=== PATIENT | male | born 1960 | race Caucasian/White ===

== ENCOUNTER 2017-06-21 09:07 | Emergency (ER) | payer BC ==
[2017-06-21] MEDS ORDERED: Reglan 10 MG/2 ML IV ONE (09:54)
[2017-06-21] MEDS ORDERED: Lactated Ringers 1,000 ML IV ONE ×2 (09:56→10:14)
[2017-06-21 10:07] LABS: Hematocrit 45.3 % (42-50); Mean Corpuscular Hgb Concent. 35.3 g/dl (32-36); Mean Platelet Volume 9.6 fl (6-9.5); Platelet Count 281 K/mm3 (150-450); Red Blood Count 5.33 M/mm3 (4.1-5.6); Red Cell Distribution Width 12.7 % (11.5-14.0)
[2017-06-21] MEDS ORDERED: Reglan 10 MG/2 ML ONE (10:14)
[2017-06-21 10:41] LABS: BAND 9 % (0.0-2.0); Lymphocytes 14 % (24-44); Monocyte 4 % (0.0-12.0); Neutrophils 73 % (36.-66.); Platelet Estimate NORMAL (NORMAL); Total Cells Counted 100
[2017-06-21 11:15] LABS: ALBUMIN 5.7 g/dl (3.5-5.0); ANION GAP 34.6 MEQ/L; BILIRUBIN,TOTAL 1.1 mg/d? (0.2-1.3); Calcium 11.1 mg/dl (8.4-10.2); Creatinine 1 2.07 mg/dl (0.66-1.25); Potassium 4.1 mmol/L (3.5-5.1); Total Protein 10.7 mg/dl (6.3-8.2)
--- NOTE | 2017-06-21 11:17 | XRAY ---
Indication: Abdominal pain, nausea, and vomiting. Comparison: Chest exam March 21, 2006. 2 views of the abdomen demonstrates midabdomen mild air distended small bowel loop with paucity of colonic bowel gas. Obstruction is of primary concern. No free air. Solid organs unremarkable. Scattered vascular calcifications. Osseous structures intact with lower lumbar degenerative changes and partially visualized old proximal right femur fracture. Single PA chest clear with incidental calcified granulomas. Heart is not enlarged. Bony thorax intact with mild degenerative changes. New surgical clips at the base the neck. Impression: 1. Midabdomen air distended small bowel loop with paucity of colonic bowel gas. Rule out obstruction. 2. Nonacute 1V chest with chronic features.
--- NOTE | 2017-06-21 11:32 | ERPHSYRPT ---
- History of Present Illness Time Seen by Provider: 06/21/17 09:13 Historian: patient, other Exam Limitations: no limitations Patient Subjective Stated Complaint: pt reports vomiting for several days-was tx with fluids by pcp-reports he is still vomiting-denies diarrhea Triage Nursing Assessment: pt pink warm and dry-pt has trach in place and is nonverbal-communicates thru phone gestures and friend-abd soft and nontender to palp Physician History: patient with abd pain generalized with N&V x 3 days; unable to keep anything down; no recent travel or exposures; hx of bowel resection in past; no ffever; voids ok; no recent BM Timing/Duration: day(s) (3) Activities at Onset: none Quality: cramping Abdominal Pain Onset Location: generalized abdomen Pain Radiation: no radiation Severity of Pain-Max: severe Severity of Pain-Current: moderate Modifying Factors: Improves With: vomiting (releif after for short time) Associated Symptoms: loss of appetite, nausea, vomiting Previous symptoms: no recent treatment Allergies/Adverse Reactions: No Known Drug Allergies Allergy (Verified 06/21/17 09:41) Home Medications: Rosuvastatin Calcium [Crestor] 10 mg DAILY 04/08/13 [History] Carvedilol 12.5 mg [Coreg 12.5 mg] 12.5 mg PO DAILY 06/19/17 [History] Pantoprazole Sodium [Protonix] 40 mg PO DAILY 06/19/17 [History] Ranitidine HCl 150 mg PO DAILY 06/19/17 [History] Hx Tetanus, Diphtheria Vaccination/Date Given: Yes Hx Influenza Vaccination/Date Given: Yes Hx Pneumococcal Vaccination/Date Given: Yes Immunizations Up to Date: Yes - Review of Systems Constitutional: No Symptoms Eyes: No Symptoms Ears, Nose, & Throat: No Symptoms Respiratory: No Cough, No Dyspnea, No Wheezing Cardiac: No Chest Pain, No Palpitations, No Syncope Abdominal/Gastrointestinal: Abdominal Pain, Nausea, Vomiting, Constipation, No Diarrhea, No Hematemesis, No Melena Genitourinary Symptoms: No Symptoms Musculoskeletal: No Symptoms Skin: No Symptoms Neurological: No Symptoms Psychological: No Symptoms Endocrine: No Symptoms Hematologic/Lymphatic: No Symptoms Immunological/Allergic: No Symptoms - Past Medical History Pertinent Past Medical History: Yes Neurological History: No Pertinent History ENT History: No Pertinent History Cardiac History: High Cholesterol, Hypertension Respiratory History: Other Endocrine Medical History: No Pertinent History Musculoskeletal History: No Pertinent History GI Medical History: GERD History: No Pertinent History Psycho-Social History: No Pertinent History Male Reproductive Disorders: No Pertinent History Other Medical History: throat CA. pt communicated with writing r/t trach - Past Surgical History Past Surgical History: Yes Neuro Surgical History: No Pertinent History Cardiac: No Pertinent History Respiratory: Tracheostomy Gastrointestinal: Colon Resection Genitourinary: No Pertinent History Musculoskeletal: No Pertinent History Male Surgical History: No Pertinent History - Social History Smoking Status: Former smoker Exposure to second hand smoke: No Alcohol Use: None Drug Use: none Patient Lives Alone: No Significant Family History: no pertinent family hx - Female History Hx Now: No - Nursing Vital Signs Nursing Vital Signs: Initial Vital Signs Temperature 97.6 F 06/21/17 09:37 Pulse Rate 102 H 06/21/17 09:37 Respiratory Rate 18 06/21/17 09:37 Blood Pressure 168/102 06/21/17 09:37 O2 Sat by Pulse Oximetry 98 06/21/17 09:37 Pain Scale Pain Intensity 3 - Physical Exam General Appearance: moderate distress, alert, thin, other (trach in place) Eye Exam: PERRL/EOMI, eyes nml inspection, No photophobia Ears, Nose, Throat Exam: normal ENT inspection, TMs normal, pharynx normal, dry mucous membranes Neck Exam: normal inspection, non-tender, supple, full range of motion, No meningismus, No JVD Respiratory Exam: normal breath sounds, lungs clear, airway intact, other ( trach in place), No chest tenderness, No respiratory distress Cardiovascular Exam: regular rate/rhythm, normal heart sounds, normal peripheral pulses, tachycardia, capillary refill <2 sec, No murmur Gastrointestinal/Abdomen Exam: soft, No normal bowel sounds (deminished ), No tenderness, No distention, No guarding, No pulsatile mass, No rebound, No organomegaly Rectal Exam: deferred Back Exam: normal inspection, normal range of motion, No CVA tenderness Extremity Exam: normal inspection, normal range of motion, No andressa's sign, No pedal edema Neurologic Exam: alert, oriented x 3, cooperative, commissary superintendent II-XII nml as tested, normal mood/affect, nml cerebellar function, nml station & gait Skin Exam: normal color, warm, dry, No rash Lymphatic Exam: No adenopathy SpO2 Interpretation: normal SpO2: 97 Oxygen Delivery: Room Air - Course Nursing assessment & vital signs reviewed: Yes - Radiology Exams Abdomen X-ray Interpretation: Reviewed by me, Teleradiologist Report (possible bowel obstruction) - CT Exams Abdomen CT Interpretation: Tele-radiologist Report, Other (ileus vs enteritis) Ordered Tests: Active Orders 24 hr Category Date Time Status IV Insertion STAT Care 06/21/17 09:54 Active Re-Check Vital Signs STAT Care 06/21/17 09:54 Active ABDOMEN AND PELVIS W/0 CONTRAS [CT] Stat Exams 06/21/17 11:57 Completed OBSTR/ACUTE ABDOMEN SERIES Stat Exams 06/21/17 09:55 Completed AMYLASE Stat Lab 06/21/17 10:03 Completed CBC W DIFF Stat Lab 06/21/17 10:03 Completed CMP Stat Lab 06/21/17 10:03 Completed LIPASE Stat Lab 06/21/17 10:03 Completed Manual Differential NC Stat Lab 06/21/17 10:03 Completed Medication Summary Discontinued Medications Generic Name Dose Route Start Last Admin Trade Name Freq PRN Reason Stop Dose Admin Lactated Ringer's 1,000 mls @ 999 mls/hr 06/21/17 09:56 06/21/17 10:15 Lactated Ringers IV 06/21/17 10:56 999 mls/hr .Q1H1M ONE Administration Lactated Ringer's Confirm 06/21/17 10:14 Lactated Ringers Administered 06/21/17 10:15 Dose 1,000 mls @ ud IV .STK-MED ONE Metoclopramide HCl 10 mg 06/21/17 09:54 06/21/17 10:15 Reglan 10 Mg/2 Ml IV 06/21/17 09:55 10 mg STAT ONE Administration Metoclopramide HCl Confirm 06/21/17 10:14 Reglan 10 Mg/2 Ml Administered 06/21/17 10:15 Dose 10 mg .ROUTE .STK-MED ONE Lab/Rad Data: Laboratory Result Diagrams 06/21/17 10:03 06/21/17 10:03 Laboratory Results 06/21/17 06/21/17 Range/Units 10:03 10:03 WBC 8.0 (4.0-10.5) K/mm3 RBC 5.33 (4.1-5.6) M/mm3 Hgb 16.0 (12.5-18.0) gm/dl Hct 45.3 (42-50) % MCV 85.0 (78-100) fl MCH 30.0 (26-32) pg MCHC 35.3 (32-36) g/dl RDW 12.7 (11.5-14.0) % Plt Count 281 (150-450) K/mm3 MPV 9.6 H (6-9.5) fl Segmented Neutrophils 73 H (36.-66.) % Band Neutrophils 9 H (0.0-2.0) % Lymphocytes (Manual) 14 L (24-44) % Monocytes (Manual) 4 (0.0-12.0) % Differential Comment NORMAL Platelet Estimate NORMAL (NORMAL) Sodium 138 (137-145) mmol/L Potassium 4.1 (3.5-5.1) mmol/L Chloride 88 L (98-107) mEq/L Carbon Dioxide 19 L (22-30) mmol/L Anion Gap 34.6 MEQ/L BUN 45 H (9-20) mg/dl Creatinine 2.07 H (0.66-1.25) mg/dl Estimated GFR 35 ML/MIN Glucose 151 H (74-106) mg/dL Calcium 11.1 H (8.4-10.2) mg/dl Total Bilirubin 1.10 (0.2-1.3) mg/d? AST 33 (17-59) U/L ALT 23 (0-50) U/L Alkaline Phosphatase 84 (38-126) U/L Serum Total Protein 10.7 H (6.3-8.2) mg/dl Albumin 5.7 H (3.5-5.0) g/dl Amylase 91 (30-110) U/L Lipase 97 (23-300) U/L reviewed - Progress Progress: improved (after meds), re-examined (after IV fluids and meds) Progress Note: 06/21/17 11:30 meds and iv given; xr and lab pending 06/21/17 11:31 xr suspect bowel obstruction; will get CT to RO; pain improved; N&V imporved; vomited x 1 post meds 06/21/17 12:[address] ; no pain; nontender abdomen; no N&V; VS good; CT ileus; will conitue IV and observe and monitor and recheck 06/21/17 13:01 rechecked and resting comfortably; VS ok; IV fluids going well Counseled pt/family regarding: lab results, diagnosis, need for follow-up, rad results - Departure Time of Disposition: 13:04 Departure Disposition: Home Clinical Impression: Nonspecific abdominal pain, Enteritis, Vomiting Condition: Stable Critical Care Time: No Referrals: JANA SMITH MD [Primary Care Provider] - Instructions: Vomiting -- Adult Additional Instructions: clear fluids 24 hours; continue meds Follow-up with family doctor as directed. Call for appointment. Return if any problems. If you smoke please stop. Call or follow up with your family doctor for assistance if you need it to stop. Please wear your seatbelt when driving. Have a nice day. Thank you for allowing us to participate in your care today. :o) Dr Phil Kapoor Prescriptions: Ondansetron ODT 4 MG [Zofran Odt 4 mg] 4 mg PO Q6H PRN PRN #14 tab.rapdis PRN Reason: Vomiting Sucralfate 1000 mg/10 ml [Carafate SUSPENSION 1000 MG/10 ML] 100 mg PO ACHS #12 oz
--- NOTE | 2017-06-21 12:15 | XRAY ---
Indication: Nausea and vomiting. Possible obstruction on same day acute abdomen series. Multiple contiguous axial images obtained through the abdomen and pelvis without contrast as ordered. Comparison: September 02, 2011. Lung bases demonstrates minimal bibasilar dependent atelectasis. No infiltrate or effusion. Heart is not enlarged again small hiatal hernia. Noncontrasted stomach unremarkable. Small bowel loops are now mildly fluid distended up to 5 cm with synchronous fluid leveling and minimal bowel wall thickening either ileus versus enteritis. There has been interval colectomy with intact sigmoid anastomosis. There is mild fluid and fecal debris in the remaining sigmoid colon and rectum favoring diarrhea. No free fluid/air. Interval enlarging 2 left renal cysts, largest 3.5 cm. Remaining liver, gallbladder, pancreas, spleen, adrenal glands, kidneys, ureters, and bladder appear unremarkable for noncontrast exam. There remains mild/moderate aortoiliac calcifications without AAA. Osseous structures intact again demonstrating bilateral L5 spondylolysis with minimal grade 1 spondylolisthesis. Also stable old proximal right femur fracture with partially visualized orthopedic hardware. Impression: 1. Fluid distended small bowel loops with synchronous fluid leveling and bowel wall thickening, ileus versus enteritis. 2. Interval colectomy which would explain the absent colonic bowel gas on same day radiograph. Intact anastomosis. 3. Interval enlarging left renal cysts. 4. Stable small hiatal hernia. 5. Stable L5 spondylolysis with grade [address] DI 16.57
[2017-06-21 13:24] VITALS: BP 148/88; PULSE 78; O2SAT 98
== END 2017-06-21 13:24 | disposition home or self-care (01) ==
LOC: ED 09:07
DX: R10.9 Unspecified abdominal pain (principal); K52.9 Noninfective gastroenteritis and colitis, unspecified; R11.2 Nausea with vomiting, unspecified; Z90.49 Acquired absence of other specified parts of digestive tract; Z93.0 Tracheostomy status; Z79.899 Other long term (current) drug therapy
CPT/HCPCS: 36000; 36415; 74022; 74176; 80053; 82150; 83690; 85025; 96360; 96374; 99284; 99285

== ENCOUNTER 2017-06-22 16:04 | Inpatient (IN) | payer BC ==
[2017-06-22 17:16] LABS: BASOPHIL % 0.2 % (0.0-0.4); Basophil (Absolute #) 0.01 (0-0.4); Eosinophil % 1.4 % (0.00-5.0); Eosinophil (Absolute #) 0.09 (0-0.5); Granulocyte Absolute (ANC) 4.47 (1.4-6.9); Granulocytes % 67.8 % (36.0-66.0); Hematocrit 45.2 % (42-50); Hemoglobin 16.3 gm/dl (12.5-18.0); Lymphocyte (Absolute #) 0.82 (1.0-4.6); Lymphocytes % 12.5 % (24.0-44.0); Mean Cell Volume 83.1 fl (78-100); Mean Corpuscular Hgb Concent. 36.1 g/dl (32-36); Mean Platelet Volume 9.5 fl (6-9.5); Monocyte (Absolute #) 1.19 (0.0-1.3); Monocytes % 18.1 % (0.0-12.0); Platelet Count 329 K/mm3 (150-450); Red Blood Count 5.44 M/mm3 (4.1-5.6); Red Cell Distribution Width 12.8 % (11.5-14.0); White Blood Count 6.6 K/mm3 (4.0-10.5)
[2017-06-22 17:16] LABS: Lactic Acid 1.9 (0.4-2.0)
[2017-06-22 17:51] LABS: ALBUMIN 5.5 g/dl (3.5-5.0); ANION GAP 35.8 MEQ/L (5-15); BILIRUBIN,TOTAL 0.9 mg/d? (0.2-1.3); Calcium 10.5 mg/dL (8.4-10.2); Creatinine 1 3.78 mg/dl (0.66-1.25); Potassium 3.7 mmol/L (3.5-5.1); Total Protein 10.5 mg/dl (6.3-8.2)
[2017-06-22] MEDS ORDERED: Zofran 4 MG/2 ML VIAL IV ONE (17:55)
[2017-06-22] MEDS ORDERED: Sodium Chloride 0.9% 1000 ML 1,000 ML IV SCH ×2 (18:00→19:28)
[2017-06-22] MEDS ORDERED: Sodium Chloride 0.9% 1000 ML 1,000 ML ONE (18:26)
[2017-06-22] MEDS ORDERED: Zofran 4 MG/2 ML VIAL ONE (18:28)
--- NOTE | 2017-06-22 18:57 | ERPHSYRPT ---
- History of Present Illness Time Seen by Provider: 06/22/17 16:47 Historian: patient Patient Subjective Stated Complaint: here for abd pain and n/v was here for samething yesterday. pt states he is not better, pt communicate with board do to not being able to speak. pt has a trach Triage Nursing Assessment: pt alert, resp easy,skin w/d/p. and soft Physician History: CC: vomiting Hx: 56 y/o patient of Dr Smith and Isaac. He has had vomiting. A little diarrhea yesterday. Was evaluated in ER and had CT without bowel obstruction. He went home. Continued to vomit. No fever or chills. Off and on abd cramping. No chest pain. Unable to eat or drink. Timing/Duration: yesterday Severity of Pain-Max: moderate Severity of Pain-Current: moderate Allergies/Adverse Reactions: No Known Drug Allergies Allergy (Verified 06/22/17 16:36) Home Medications: Rosuvastatin Calcium [Crestor] 10 mg DAILY 04/08/13 [History] Carvedilol 12.5 mg [Coreg 12.5 mg] 12.5 mg PO DAILY 06/19/17 [History] Pantoprazole Sodium [Protonix] 40 mg PO DAILY 06/19/17 [History] Ranitidine HCl 150 mg PO DAILY 06/19/17 [History] Hx Tetanus, Diphtheria Vaccination/Date Given: Yes Hx Influenza Vaccination/Date Given: Yes Hx Pneumococcal Vaccination/Date Given: Yes - Review of Systems Constitutional: Fatigue, Malaise, Weakness, No Fever, No Chills Eyes: No Symptoms Ears, Nose, & Throat: No Symptoms Respiratory: No Cough, No Dyspnea Cardiac: No Chest Pain Abdominal/Gastrointestinal: Nausea, Vomiting, No Abdominal Pain, No Diarrhea Genitourinary Symptoms: No Dysuria Neurological: No Dizziness, No Focal Weakness, No Parasthesia All Other Systems: Reviewed and Negative - Past Medical History Pertinent Past Medical History: Yes Neurological History: No Pertinent History ENT History: No Pertinent History Cardiac History: High Cholesterol, Hypertension Respiratory History: Other Endocrine Medical History: No Pertinent History Musculoskeletal History: No Pertinent History GI Medical History: GERD History: No Pertinent History Psycho-Social History: No Pertinent History Male Reproductive Disorders: No Pertinent History Other Medical History: throat CA. pt communicated with writing r/t trach - Past Surgical History Past Surgical History: Yes Neuro Surgical History: No Pertinent History Cardiac: No Pertinent History Respiratory: Tracheostomy Gastrointestinal: Colon Resection Genitourinary: No Pertinent History Musculoskeletal: No Pertinent History Male Surgical History: No Pertinent History - Social History Smoking Status: Former smoker Exposure to second hand smoke: No Alcohol Use: None Drug Use: none Patient Lives Alone: No Significant Family History: no pertinent family hx - Nursing Vital Signs Nursing Vital Signs: Initial Vital Signs Temperature 97.6 F 06/22/17 16:26 Pulse Rate 97 H 06/22/17 16:26 Respiratory Rate 16 06/22/17 16:26 Blood Pressure 142/91 06/22/17 16:26 O2 Sat by Pulse Oximetry 98 06/22/17 16:26 Pain Scale Pain Intensity 0 - Physical Exam General Appearance: alert Eye Exam: PERRL/EOMI Ears, Nose, Throat Exam: dry mucous membranes Neck Exam: normal inspection, non-tender, supple, other (trach) Respiratory Exam: normal breath sounds Cardiovascular Exam: regular rate/rhythm Gastrointestinal/Abdomen Exam: soft, No tenderness, No distention, No mass, No guarding Male Genitalia Exam: normal genitalia Extremity Exam: normal inspection, No pedal edema Neurologic Exam: alert, cooperative Skin Exam: warm, dry, No rash SpO2 Interpretation: normal SpO2: 98 Oxygen Delivery: Room Air - Course Nursing assessment & vital signs reviewed: Yes EKG Interpreted by Me: RATE (99), Sinus Rhythm, NORMAL AXIS, NORMAL INTERVALS ( QTc 475), NORMAL QRS, NORMAL ST-T - Radiology Exams AAS X-ray Interpretation: Reviewed by me (few air fluid levels, no camila obstruction ) Ordered Tests: Active Orders 24 hr Category Date Time Status EKG-ER Only STAT Care 06/22/17 16:49 Active IV Insertion STAT Care 06/22/17 16:49 Active NPO (ED) STAT Care 06/22/17 16:49 Active OBSTR/ACUTE ABDOMEN SERIES Stat Exams 06/22/17 16:49 Taken CBC W DIFF Stat Lab 06/22/17 17:00 Completed CMP Stat Lab 06/22/17 17:00 Completed LIPASE Stat Lab 06/22/17 17:00 Completed Lactic Acid Stat Lab 06/22/17 17:14 Results UA W/RFX UR CULTURE Stat Lab 06/22/17 16:49 Ordered Medication Summary Generic Name Dose Route Start Last Admin Trade Name Reid PRN Reason Stop Dose Admin Sodium Chloride 1,000 mls @ 100 mls/hr 06/22/17 18:00 06/22/17 18:29 Sodium Chloride 0.9% 1000 Ml IV 07/22/17 17:59 100 mls/hr .Q10H PAKO Administration Discontinued Medications Generic Name Dose Route Start Last Admin Trade Name Reid PRN Reason Stop Dose Admin Ondansetron HCl 4 mg 06/22/17 17:55 06/22/17 18:29 Zofran 4 Mg/2 Ml Vial IV 06/22/17 17:56 4 mg STAT ONE Administration Ondansetron HCl Confirm 06/22/17 18:28 Zofran 4 Mg/2 Ml Vial Administered 06/22/17 18:29 Dose 4 mg .ROUTE .STK-MED ONE Lab/Rad Data: Laboratory Result Diagrams 06/22/17 17:00 06/22/17 17:00 Laboratory Results 06/22/17 06/22/17 06/22/17 Range/Units 17:14 17:00 17:00 WBC 6.6 (4.0-10.5) K/mm3 RBC 5.44 (4.1-5.6) M/mm3 Hgb 16.3 (12.5-18.0) gm/dl Hct 45.2 (42-50) % MCV 83.1 (78-100) fl MCH 30.0 (26-32) pg MCHC 36.1 H (32-36) g/dl RDW 12.8 (11.5-14.0) % Plt Count 329 (150-450) K/mm3 MPV 9.5 (6-9.5) fl Gran % 67.8 H (36.0-66.0) % Lymphocytes % 12.5 L (24.0-44.0) % Monocytes % 18.1 H (0.0-12.0) % Eosinophils % 1.4 (0.00-5.0) % Basophils % 0.2 (0.0-0.4) % Basophils # 0.01 (0-0.4) Sodium 130 L (137-145) mmol/L Potassium 3.7 (3.5-5.1) mmol/L Chloride 83 L (98-107) mEq/L Carbon Dioxide 16 L (22-30) mmol/L Anion Gap 35.8 H (5-15) MEQ/L BUN 80 H (9-20) mg/dl Creatinine 3.78 H (0.66-1.25) mg/dl Estimated GFR 18 ML/MIN Glucose 144 H (74-106) mg/dL Lactic Acid 1.9 (0.4-2.0) Calcium 10.5 H (8.4-10.2) mg/dL Total Bilirubin 0.90 (0.2-1.3) mg/d? AST 24 (17-59) U/L ALT 17 (0-50) U/L Alkaline Phosphatase 82 (38-126) U/L Serum Total Protein 10.5 H (6.3-8.2) mg/dl Albumin 5.5 H (3.5-5.0) g/dl Lipase 122 (23-300) U/L - Progress Progress Note: 06/22/17 18:56 The patient appears dehydrated. Labs have worsened azotemia. Called Dr Smith who advised observation for IVF. Discussed with : Nathan Will see patient in: hospital (observation) Counseled pt/family regarding: lab results, diagnosis, need for follow-up, rad results - Departure Time of Disposition: 18:57 Departure Disposition: Observation Clinical Impression: Azotemia, Dehydration, Vomiting Condition: Fair Critical Care Time: No Referrals: JANA SMITH MD [Primary Care Provider] -
[2017-06-23] MEDS: Zofran 4 MG/2 ML VIAL IV PRN ×3 (00:14→15:32)
[2017-06-23 05:34] LABS: BASOPHIL % 0.2 % (0.0-0.4); Basophil (Absolute #) 0.01 (0-0.4); Eosinophil % 1.4 % (0.00-5.0); Eosinophil (Absolute #) 0.07 (0-0.5); Granulocyte Absolute (ANC) 3.22 (1.4-6.9); Granulocytes % 62.6 % (36.0-66.0); Hematocrit 43.4 % (42-50); Hemoglobin 15.5 gm/dl (12.5-18.0); Lymphocyte (Absolute #) 0.79 (1.0-4.6); Lymphocytes % 15.4 % (24.0-44.0); Mean Cell Volume 83.3 fl (78-100); Mean Corpuscular Hemoglobin 29.8 pg (26-32); Mean Corpuscular Hgb Concent. 35.7 g/dl (32-36); Mean Platelet Volume 9.8 fl (6-9.5); Monocyte (Absolute #) 1.05 (0.0-1.3); Monocytes % 20.4 % (0.0-12.0); Platelet Count 326 K/mm3 (150-450); Red Blood Count 5.21 M/mm3 (4.1-5.6); Red Cell Distribution Width 12.7 % (11.5-14.0); White Blood Count 5.1 K/mm3 (4.0-10.5)
[2017-06-23 06:06] LABS: ALBUMIN 5.2 g/dl (3.5-5.0); ANION GAP 30.2 MEQ/L (5-15); BILIRUBIN,TOTAL 0.8 mg/d? (0.2-1.3); Calcium 9.7 mg/dL (8.4-10.2); Creatinine 1 3.64 mg/dl (0.66-1.25); Potassium 3.3 mmol/L (3.5-5.1); Total Protein 9.4 mg/dl (6.3-8.2)
--- NOTE | 2017-06-23 08:49 | XRAY ---
Indication: Vomiting and abdominal pain. Comparison: One day earlier. 2 views of the abdomen again demonstrates a few fluid distended small bowel loops with air-fluid leveling, less than before. CT yesterday reports ileus versus enteritis and colectomy. No free air. Solid organs unremarkable. Stable scattered vascular calcifications. Osseous structures intact again with chronic features. Single PA chest demonstrates right lung calcified granuloma and surgical clips at the base of the neck. Remaining heart and lungs normal. Impression: 1. Small bowel air-fluid leveling less than before, ileus versus enteritis. 2. Stable nonacute one view chest with again evidence for old granulomatous disease.
[2017-06-23] MEDS ORDERED: Sodium Chloride 0.9% 1000 ML 1,000 ML IV STA (08:54)
[2017-06-23] MEDS ORDERED: NON-FORMULARY ITEM (Rosuvastatin Calcium [Crestor] 10 MG) PO SCH (10:00)
[2017-06-23] MEDS ORDERED: Sodium Chloride 0.9% 1000 ML 1,000 ML IV ONE (10:00)
[2017-06-23] MEDS ORDERED: NON-FORMULARY ITEM (Ranitidine Hcl [Ranitidine Hcl] 150 MG) PO SCH (10:00)
[2017-06-23] MEDS: COREG 12.5 MG PO SCH (10:00)
[2017-06-23] MEDS: ZOCOR 20MG PO SCH (10:00)
[2017-06-23] MEDS: Protonix 40MG Tablet PO SCH (10:00)
[2017-06-23] MEDS: Pepcid 20 MG PO SCH (10:00)
--- NOTE | 2017-06-23 12:49 | PCM.HP ---
History of Present Illness - Chief Complaint Chief Complaint: Azetemia, Dehydration, Vomiting History of Present Illness: is a 56 year old male.here for abd pain and n/v was here for samething yesterday. pt states he is not better, pt communicate with board do to not being able to speak. pt has a trach - Review of Systems Constitutional: No Fever, No Chills Eyes: No Symptoms Ears, Nose, & Throat: No Symptoms Respiratory: No Cough, No Short Of Breath Cardiac: No Chest Pain, No Edema, No Syncope Abdominal/Gastrointestinal: No Abdominal Pain, No Nausea, No Vomiting, No Diarrhea Genitourinary Symptoms: No Dysuria Musculoskeletal: No Back Pain, No Neck Pain Skin: No Rash Neurological: No Dizziness, No Focal Weakness, No Sensory Changes Psychological: No Symptoms Endocrine: No Symptoms Hematologic/Lymphatic: No Symptoms Immunological/Allergic: No Symptoms Medications & Allergies Home Medications: Home Medication List Rosuvastatin Calcium [Crestor] 10 mg DAILY 04/08/13 [History Confirmed 06/22/17] Carvedilol 12.5 mg [Coreg 12.5 mg] 12.5 mg PO DAILY 06/19/17 [History Confirmed 06/22/17] Pantoprazole Sodium [Protonix] 40 mg PO DAILY 06/19/17 [History Confirmed ] Ranitidine HCl 150 mg PO DAILY 06/19/17 [History Confirmed 06/22/17] Ondansetron ODT 4 MG [Zofran Odt 4 mg] 4 mg PO Q6H PRN PRN #14 tab.rapdis 06/21/17 [Rx Confirmed 06/22/17] Sucralfate 1000 mg/10 ml [Carafate SUSPENSION 1000 MG/10 ML] 100 mg PO ACHS #12 oz 06/21/17 [Rx Confirmed 06/22/17] Allergies/Adverse Reactions: Allergies Allergy/AdvReac Type Severity Reaction Status Date / Time No Known Drug Allergies Allergy Verified 06/22/17 16:36 - Past Medical History Past Medical History: Yes Neurological History: No Pertinent History ENT History: No Pertinent History Cardiac History: High Cholesterol, Hypertension Respiratory History: Other Endocrine Medical History: No Pertinent History Musculoskelatal History: No Pertinent History GI Medical History: GERD History: No Pertinent History Pyscho-Social History: No Pertinent History Male Reproductive Disorders: No Pertinent History Comment: throat CA. pt communicated with writing r/t trach - Past Surgical History Past Surgical History: Yes Neuro Surgical History: No Pertinent History Cardiac History: No Pertinent History Respiratory Surgery: Tracheostomy GI Surgical History: Colon Resection Genitourinary Surgical Hx: No Pertinent History Musculskeletal Surgical Hx: No Pertinent History Male Surgical History: No Pertinent History - Social History Smoking Status: Former smoker Exposure to second hand smoke: No Alcohol: Rarely Drug Use: none Significant Family History: no pertinent family hx - Physical Exam Vital Signs: Vital Signs - 24 hr Temp Pulse Resp BP Pulse Ox 06/23/17 11:33 98.1 F 87 18 117/71 96 06/23/17 07:22 97.7 F 91 H 18 112/74 95 06/23/17 06:50 94 L 06/23/17 04:00 98.3 F 98 H 24 109/77 95 06/23/17 00:12 97.9 F 102 H 24 129/74 96 06/22/17 22:05 105 H 18 98 06/22/17 19:39 98.4 F 98 H 22 136/82 95 06/22/17 18:57 98 06/22/17 18:24 100 H 13 150/92 98 06/22/17 17:55 90 18 150/72 97 06/22/17 16:26 97.6 F 97 H 16 142/91 98 Oxygen-Last 24 hours O2 Percentage 2 Liters = 28% O2 Percentage 2 Liters = 28% O2 Percentage 2 Liters = 28% General Appearance: no apparent distress, alert Neurologic Exam: alert, oriented x 3, cooperative, normal mood/affect, nml cerebellar function, nml station & gait, sensation nml, No motor deficits Eye Exam: PERRL/EOMI, eyes nml inspection Ears, Nose, Throat Exam: normal ENT inspection, TMs normal, pharynx normal, moist mucous membranes Neck Exam: normal inspection, non-tender, supple, full range of motion Respiratory Exam: normal breath sounds, lungs clear, No respiratory distress Cardiovascular Exam: regular rate/rhythm, normal heart sounds, normal peripheral pulses Gastrointestinal/Abdomen Exam: soft, normal bowel sounds, No tenderness, No mass Back Exam: normal inspection, normal range of motion, No CVA tenderness, No vertebral tenderness Extremity Exam: normal inspection, normal range of motion, pelvis stable Skin Exam: normal color, warm, dry, No rash Lymphatic Exam: No adenopathy Results - Labs Lab/Micro Results: Lab Results-Last 24 Hours 06/23/17 06/23/17 06/23/17 Range/Units 05:03 05:03 05:05 WBC 5.1 (4.0-10.5) K/mm3 RBC 5.21 (4.1-5.6) M/mm3 Hgb 15.5 (12.5-18.0) gm/dl Hct 43.4 (42-50) % MCV 83.3 (78-100) fl MCH 29.8 (26-32) pg MCHC 35.7 (32-36) g/dl RDW 12.7 (11.5-14.0) % Plt Count 326 (150-450) K/mm3 MPV 9.8 H (6-9.5) fl Gran % 62.6 (36.0-66.0) % Lymphocytes % 15.4 L (24.0-44.0) % Monocytes % 20.4 H (0.0-12.0) % Eosinophils % 1.4 (0.00-5.0) % Basophils % 0.2 (0.0-0.4) % Basophils # 0.01 (0-0.4) Sodium 131 L (137-145) mmol/L Potassium 3.3 L (3.5-5.1) mmol/L Chloride 85 L (98-107) mEq/L Carbon Dioxide 19 L (22-30) mmol/L Anion Gap 30.2 H (5-15) MEQ/L BUN 89 H (9-20) mg/dl Creatinine 3.64 H (0.66-1.25) mg/dl Estimated GFR 18 ML/MIN Glucose 124 H (74-106) mg/dL Lactic Acid 1.5 (0.4-2.0) Calcium 9.7 (8.4-10.2) mg/dL Total Bilirubin 0.80 (0.2-1.3) mg/d? AST 18 (17-59) U/L ALT 14 (0-50) U/L Alkaline Phosphatase 73 (38-126) U/L Serum Total Protein 9.4 H (6.3-8.2) mg/dl Albumin 5.2 H (3.5-5.0) g/dl - Radiology Impressions Radiology Exams & Impressions: Radiology Procedures Category Date Time Status ABDOMEN AND PELVIS W/0 CONTRAS [CT] Stat Exams 06/23/17 12:44 Ordered Assessment/Plan (1) Azotemia Current Visit: Yes Status: Acute Code(s): R79.89 - OTHER SPECIFIED ABNORMAL FINDINGS OF BLOOD CHEMISTRY (2) Dehydration Current Visit: Yes Status: Acute Code(s): E86.0 - DEHYDRATION (3) Enteritis Current Visit: Yes Status: Acute Code(s): K52.9 - NONINFECTIVE GASTROENTERITIS AND COLITIS, UNSPECIFIED (4) Failure of outpatient treatment Current Visit: Yes Status: Acute Code(s): Z78.9 - OTHER SPECIFIED HEALTH STATUS (5) Nonspecific abdominal pain Current Visit: Yes Status: Acute Code(s): R10.9 - UNSPECIFIED ABDOMINAL PAIN (6) Vomiting Current Visit: Yes Status: Acute Code(s): R11.10 - VOMITING, UNSPECIFIED
[2017-06-23] MEDS: Sodium Chloride 0.9% 1000 ML 1,000 ML IV SCH ×2 (13:00→23:07)
[2017-06-23] MEDS: Carafate SUSPENSION 1000 MG/10 ML PO SCH ×3 (13:09→21:55)
--- NOTE | 2017-06-23 14:06 | XRAY ---
Indication: Paralytic ileus. Lower abdominal pain and vomiting. Multiple contiguous axial images obtained through the abdomen and pelvis without contrast as ordered. Comparison: June 21, 2017. Lung bases again demonstrates minimal bibasilar atelectasis without infiltrate or effusion. Heart is not enlarged. Stable small hiatal hernia. Noncontrasted stomach now markedly fluid distended. Several small bowel loops again fluid distended today up to 5.5 cm in diameter with continued fluid leveling. Several small bowel loops in the left mid abdomen and right lower quadrant now appear decompressed. Findings now concerning for small bowel obstruction. No free fluid/air. Again note of colectomy with intact sigmoid anastomosis. Gallbladder is now moderately distended without gallstones. Stable left renal cysts. Remaining liver, pancreas, spleen, adrenal glands, kidneys, ureters, and bladder appear unremarkable for noncontrast exam. Stable mild/moderate aortoiliac calcifications without AAA. Osseous structures intact again with bilateral L5 spondylolysis, minimal L5 grade 1 spondylolisthesis, and old proximal right femur fracture. Impression: 1. Increasing fluid distended stomach and small bowel loops with now several distal small bowel loops decompressed concerning for small bowel obstruction. 2. Distended gallbladder without gallstones. Ultrasound may yield further information. 3. Stable colectomy, left renal cysts, small hiatal hernia, and L5 spondylolysis with grade [address] DI 19.82
[2017-06-23 15:01] LABS: ANION GAP 25.1 MEQ/L (5-15); Creatinine 1 2.47 mg/dl (0.66-1.25); Potassium 3.3 mmol/L (3.5-5.1)
[2017-06-24] MEDS: Sodium Chloride 0.9% 1000 ML 1,000 ML IV SCH ×4 (05:17→19:55)
[2017-06-24] MEDS: Carafate SUSPENSION 1000 MG/10 ML PO SCH ×4 (05:49→21:10)
[2017-06-24] MEDS: Protonix 40MG Tablet PO SCH (10:00)
[2017-06-24] MEDS: ZOCOR 20MG PO SCH (10:04)
[2017-06-24] MEDS: COREG 12.5 MG PO SCH (10:05)
[2017-06-24] MEDS: Pepcid 20 MG PO SCH (10:05)
[2017-06-25] MEDS: Sodium Chloride 0.9% 1000 ML 1,000 ML IV SCH ×4 (01:07→22:54)
[2017-06-25 06:09] LABS: Hematocrit 33.3 % (42-50); Hemoglobin 11.4 gm/dl (12.5-18.0); Mean Cell Volume 88.8 fl (78-100); Mean Corpuscular Hemoglobin 30.4 pg (26-32); Mean Corpuscular Hgb Concent. 34.2 g/dl (32-36); Mean Platelet Volume 8.9 fl (6-9.5); Platelet Count 186 K/mm3 (150-450); Red Blood Count 3.75 M/mm3 (4.1-5.6); Red Cell Distribution Width 12.3 % (11.5-14.0); White Blood Count 4.3 K/mm3 (4.0-10.5)
[2017-06-25 06:43] LABS: ALBUMIN 3.6 g/dl (3.5-5.0); ALKALINE PHOSPHATASE 49 U/L (38-126); ANION GAP 17.6 MEQ/L (5-15); BLOOD UREA NITROGEN 28 mg/dl (9-20); CHLORIDE 105 mEq/L (98-107); Calcium 8.4 mg/dL (8.4-10.2); Carbon Dioxide 21 mmol/L (22-30); Glucose 76 mg/dL (74-106); Potassium 3.3 mmol/L (3.5-5.1); SGOT/AST 13 U/L (17-59); SGPT/ALT 8 U/L (0-50); SODIUM 140 mmol/L (137-145); Total Protein 6.5 mg/dl (6.3-8.2)
[2017-06-25] MEDS: Carafate SUSPENSION 1000 MG/10 ML PO SCH ×4 (07:51→22:48)
[2017-06-25] MEDS: Pepcid 20 MG PO SCH (09:47)
[2017-06-25] MEDS: COREG 12.5 MG PO SCH (09:47)
[2017-06-25] MEDS: Protonix 40MG Tablet PO SCH (09:47)
[2017-06-25] MEDS: ZOCOR 20MG PO SCH (09:47)
[2017-06-25] MEDS: Zofran 4 MG/2 ML VIAL IV PRN ×2 (13:11→21:55)
[2017-06-25] MEDS ORDERED: Klor Con 10 MEQ PO ONE (15:00)
[2017-06-26] MEDS: Zofran 4 MG/2 ML VIAL IV PRN ×2 (04:41→15:00)
[2017-06-26 05:59] LABS: ANION GAP 18.8 MEQ/L (5-15); BLOOD UREA NITROGEN 21 mg/dl (9-20); CHLORIDE 103 mEq/L (98-107); Calcium 9.2 mg/dL (8.4-10.2); Carbon Dioxide 23 mmol/L (22-30); Creatinine 1 0.93 mg/dl (0.66-1.25); Glucose 83 mg/dL (74-106); Potassium 3.5 mmol/L (3.5-5.1); SODIUM 141 mmol/L (137-145)
[2017-06-26] MEDS: Carafate SUSPENSION 1000 MG/10 ML PO SCH ×4 (06:36→22:46)
[2017-06-26 08:23] LABS: Appearance CLEAR (CLEAR); Bilirubin NEGATIVE (NEGATIVE); Blood 50 Ery/ul (0-5); Glucose NEGATIVE (NEGATIVE); Ketones LARGE-80 (NEGATIVE); Leukocyte Esterase NEGATIVE (NEGATIVE); Nitrite NEGATIVE (NEGATIVE); Protein,Urine Dip TRACE (Negative); Urobilinogen NORMAL mg/dL (0-1)
[2017-06-26 08:24] LABS: Bacteria FEW /HPF (NEGATIVE); Epithelial Cells FEW /HPF (FEW)
--- NOTE | 2017-06-26 08:59 | CONS ---
CONSULT DATE: 06/25/2017 REASON FOR CONSULT: Bowel obstruction. HISTORY: A 56 year-old underwent a near total colectomy some four or five years ago for polyps. No malignancy. He said he had 14 inches of colon left this was done elsewhere. He has had three colonoscopic examinations in the last five years so it looks like he is probably caught up on these. He is seen and examined for bowel obstruction. He had a clinical course of vomiting, abdominal bloating. CT suggesting partial bowel obstruction. He was absolutely soft and had a bowel movement and was certainly feeling much better and looked totally nontoxic. On further questioning he has had laryngectomy, chemotherapy and radiation about eight months ago. His abdomen now is totally soft, nontender with no peritoneal signs. His NG tube was in place. I ordered the NG to be withdrawn Monday morning and for clear liquids to be started. Subsequently today apparently he did have emesis about 300 cc. We will follow along with medical and he will be seen tomorrow by Dr. Soto.
[2017-06-26] MEDS: Protonix 40MG Tablet PO SCH (10:27)
[2017-06-26] MEDS: Pepcid 20 MG PO SCH (10:27)
[2017-06-26] MEDS: ZOCOR 20MG PO SCH (10:28)
[2017-06-26] MEDS: COREG 12.5 MG PO SCH (10:28)
[2017-06-26] MEDS: Sodium Chloride 0.9% 1000 ML 1,000 ML IV SCH ×2 (10:29→20:20)
--- NOTE | 2017-06-26 13:04 | PCM.NOTE ---
Date and Time: 06/26/17 1301 Subjective Assessment: doing ok, still vomiting - Review of Systems Constitutional: No Fever, No Chills Eyes: No Symptoms Ears, Nose, & Throat: No Symptoms Respiratory: No Cough, No Short Of Breath Cardiac: No Chest Pain, No Edema, No Syncope Abdominal/Gastrointestinal: No Abdominal Pain, No Nausea, No Vomiting, No Diarrhea Genitourinary Symptoms: No Dysuria Musculoskeletal: No Back Pain, No Neck Pain Skin: No Rash Neurological: No Dizziness, No Focal Weakness, No Sensory Changes Psychological: No Symptoms Endocrine: No Symptoms Hematologic/Lymphatic: No Symptoms Immunological/Allergic: No Symptoms Objective Exam General Appearance: no apparent distress, alert Neurologic Exam: alert, oriented x 3, cooperative, normal mood/affect, nml cerebellar function, sensation nml, No motor deficits Skin Exam: normal color, warm, dry Eye Exam: PERRL, EOMI, eyes nml inspection Ears, Nose, Throat Exam: normal ENT inspection, pharynx normal, moist mucous membranes Neck Exam: normal inspection, non-tender, supple, full range of motion Respiratory Exam: normal breath sounds, lungs clear, No respiratory distress Cardiovascular Exam: regular rate/rhythm, normal heart sounds Gastrointestinal/Abdomen Exam: soft, tenderness, distention, No mass Extremity Exam: normal inspection, normal range of motion Back Exam: normal inspection, normal range of motion, No CVA tenderness, No vertebral tenderness Male Genitalia Exam: deferred Rectal Exam: deferred OBJECTIVE DATA Vital Signs: Vital Signs - 24 hr Temp Pulse Resp BP Pulse Ox 06/26/17 10:55 98.2 F 69 18 120/66 97 06/26/17 06:48 98.1 F 72 18 117/63 99 06/26/17 04:00 98.5 F 69 19 122/61 94 L 06/25/17 23:36 99.1 F 66 19 107/62 97 06/25/17 19:42 99.0 F 76 18 122/67 96 06/25/17 16:00 98.9 F 74 20 114/61 96 Pain Assessment - Last Documented Pain Intensity 0 Pain Scale Used 0-10 Pain Scale Intake and Output: Intake & Output 06/24/17 06/25/17 06/26/17 06/27/17 10:59 11:59 11:59 11:59 Intake Total 2361 0 Output Total 2320 Balance 41 0 Weight 81.6 kg Lab Results: Lab Results-Last 24 Hours 06/26/17 Range/Units 05:12 Sodium 141 (137-145) mmol/L Potassium 3.5 (3.5-5.1) mmol/L Chloride 103 (98-107) mEq/L Carbon Dioxide 23 (22-30) mmol/L Anion Gap 18.8 H (5-15) MEQ/L BUN 21 H (9-20) mg/dl Creatinine 0.93 (0.66-1.25) mg/dl Estimated GFR > 60 ML/MIN Glucose 83 (74-106) mg/dL Calcium 9.2 (8.4-10.2) mg/dL Radiology Exams: Radiology Procedures Category Date Time Status SMALL BOWEL SERIES Urgent Exams 06/26/17 10:45 Ordered Assessment/Plan (1) Azotemia Current Visit: Yes Status: Acute Code(s): R79.89 - OTHER SPECIFIED ABNORMAL FINDINGS OF BLOOD CHEMISTRY (2) Dehydration Current Visit: Yes Status: Acute Code(s): E86.0 - DEHYDRATION (3) Enteritis Current Visit: Yes Status: Acute Code(s): K52.9 - NONINFECTIVE GASTROENTERITIS AND COLITIS, UNSPECIFIED (4) Failure of outpatient treatment Current Visit: Yes Status: Acute Code(s): Z78.9 - OTHER SPECIFIED HEALTH STATUS (5) Nonspecific abdominal pain Current Visit: Yes Status: Acute Code(s): R10.9 - UNSPECIFIED ABDOMINAL PAIN (6) Vomiting Current Visit: Yes Status: Acute Code(s): R11.10 - VOMITING, UNSPECIFIED (7) SBO (small bowel obstruction) Current Visit: Yes Status: Acute Code(s): K56.609 - UNSP INTESTNL OBST, UNSP TO PARTIAL VERSUS COMPLETE OBST
--- NOTE | 2017-06-26 15:13 | XRAY ---
Indication: Ileus versus small bowel obstruction. History colectomy. 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 Solid organs and osseous structures are unremarkable. Patient ingested 500 cc barium with multiple delayed overhead radiographs obtained. Barium collects in the stomach with immediate gastric emptying on the first image. The duodenum and jejunum are abnormally distended up to 7 cm to the level of the mid pelvic inlet unchanged out to 3 hours favoring small bowel obstruction. The small bowel barium also appears diluted from dilution and not peristalsis. No barium extravasation or evidence for leak. Impression: Abnormal small bowel follow-through exam as detailed favoring distal small bowel obstruction.
[2017-06-27] MEDS: Sodium Chloride 0.9% 1000 ML 1,000 ML IV SCH ×2 (05:48→16:16)
[2017-06-27 05:57] LABS: Hematocrit 36.6 % (42-50); Hemoglobin 12.2 gm/dl (12.5-18.0); Mean Cell Volume 89.3 fl (78-100); Mean Corpuscular Hgb Concent. 33.3 g/dl (32-36); Mean Platelet Volume 9.6 fl (6-9.5); Platelet Count 215 K/mm3 (150-450); Red Cell Distribution Width 12.1 % (11.5-14.0)
[2017-06-27 06:03] LABS: Mean Corpuscular Hemoglobin 29.7 pg (26-32)
[2017-06-27] MEDS: Carafate SUSPENSION 1000 MG/10 ML PO SCH ×4 (08:33→23:37)
[2017-06-27] MEDS: Pepcid 20 MG PO SCH (09:53)
[2017-06-27] MEDS: Protonix 40MG Tablet PO SCH (09:53)
[2017-06-27] MEDS: ZOCOR 20MG PO SCH (09:53)
[2017-06-27] MEDS: COREG 12.5 MG PO SCH (09:53)
--- NOTE | 2017-06-27 12:04 | PCM.DS ---
Discharge Summary Date of Admission: 06/23/17 12:48 Admitting Physician: JANA SMITH Consults: Consults on Case 06/23/17 14:31 Consult Surgery ROUTINE Primary Care Provider: JANA SMITH Allergies Allergies No Known Drug Allergies Allergy (Verified 06/22/17 16:36) Hospital Summary - Hospital Course Hospital Course: Last Vital Signs Temp 98 F 06/27/17 07:16 Pulse 68 06/27/17 07:16 Resp 20 06/27/17 07:16 BP 115/64 06/27/17 07:16 Pulse Ox 98 06/27/17 07:16 Allergies No Known Drug Allergies Allergy (Verified 06/22/17 16:36) Active Medications Carvedilol (Coreg 12.5 Mg) 12.5 mg PO DAILY PAKO Stop: 07/23/17 09:59 Last Admin: 06/27/17 09:53 Dose: 12.5 mg Famotidine (Pepcid 20 Mg) 20 mg PO DAILY PAKO Stop: 07/23/17 09:59 Last Admin: 06/27/17 09:53 Dose: 20 mg Sodium Chloride (Sodium Chloride 0.9% 1000 Ml) 1,000 mls @ 100 mls/hr IV .Q10H PAKO Stop: 07/23/17 10:59 Last Admin: 06/27/17 05:48 Dose: 100 mls/hr Ondansetron HCl (Zofran 4 Mg/2 Ml Vial) 4 mg IV Q6H PRN PRN PRN Reason: NAUSEA/VOMITING Stop: 07/22/17 19:27 Last Admin: 06/26/17 15:00 Dose: 4 mg Pantoprazole Sodium (Protonix 40mg Tablet) 40 mg PO DAILY PAKO Stop: 07/23/17 09:59 Last Admin: 06/27/17 09:53 Dose: 40 mg Simvastatin (Zocor 20mg) 20 mg PO DAILY [facility] Stop: 07/23/17 09:59 Last Admin: 06/27/17 09:53 Dose: 20 mg Sucralfate (Carafate Suspension 1000 Mg/10 Ml) 1,000 mg PO ACHS PAKO Stop: 07/23/17 11:29 Last Admin: 06/27/17 08:33 Dose: 1,000 mg Intake & Output 06/27/17 06/28/17 11:59 11:59 Intake Total 2685 Output Total 7050 Balance -4365 Weight 79.5 kg Orders 06/26/17 16:18 Miscellaneous Nursing Order ROUTINE Lab Tests 06/27/17 05:30 WBC 4.0 RBC 4.10 Hgb 12.2 L Hct 36.6 L MCV 89.3 MCH 29.7 MCHC 33.3 RDW 12.1 Plt Count 215 MPV 9.6 H Microbiology 06/22/17 05:01 Urine, Void - Preliminary [employer] POSIT[employer] ID AND SENSITIVITY PENDING Patient has been evaluated by surgery. Small bowel follow thru is positive for small bowel obstruction. As per patient wish and patient has laryngeal cancer and his oncologist is at [facility] so he wants to be transferred to [facility], we will facilitate transfer. - Vitals & Intake/Output Vital Signs: Vital Signs Temperature 98 F 06/27/17 07:16 Pulse Rate 68 06/27/17 07:16 Respiratory Rate 20 06/27/17 07:16 Blood Pressure 115/64 06/27/17 07:16 O2 Sat by Pulse Oximetry 98 06/27/17 07:16 Oxygen-Last Documented O2 Percentage 2 Liters = 28% Intake & Output: Intake & Output 06/25/17 06/26/17 06/27/17 06/28/17 11:59 11:59 11:59 11:59 Intake Total 2361 2685 Output Total 2720 7050 Balance -359 4369 Weight 81.6 kg 79.5 kg - Lab Result Diagrams: 06/27/17 05:30 06/26/17 05:12 Lab Results-Last 24 Hrs: Lab Results-Last 24 Hours 06/27/17 Range/Units 05:30 WBC 4.0 (4.0-10.5) K/mm3 RBC 4.10 (4.1-5.6) M/mm3 Hgb 12.2 L (12.5-18.0) gm/dl Hct 36.6 L (42-50) % MCV 89.3 (78-100) fl MCH 29.7 (26-32) pg MCHC 33.3 (32-36) g/dl RDW 12.1 (11.5-14.0) % Plt Count 215 (150-450) K/mm3 MPV 9.6 H (6-9.5) fl - Radiology Exams Ordered Rad Exams-Entire Visit: Radiology Procedures Category Date Time Status SMALL BOWEL SERIES Urgent Exams 06/26/17 10:45 Completed Discharge Exam General Appearance: no apparent distress, alert Neurologic Exam: alert, oriented x 3, cooperative, normal mood/affect, nml cerebellar function, sensation nml, No motor deficits Skin Exam: normal color, warm, dry Eye Exam: PERRL, EOMI, eyes nml inspection Ears, Nose, Throat Exam: normal ENT inspection, pharynx normal, moist mucous membranes Neck Exam: normal inspection, non-tender, supple, full range of motion Respiratory Exam: normal breath sounds, lungs clear, No respiratory distress Cardiovascular Exam: regular rate/rhythm, normal heart sounds Gastrointestinal/Abdomen Exam: tenderness, distention, No mass Extremity Exam: normal inspection, normal range of motion Back Exam: normal inspection, normal range of motion, No CVA tenderness, No vertebral tenderness Male Genitalia Exam: deferred Rectal Exam: deferred Final Diagnosis/Problem List - Final Discharge Diagnosis/Problem (1) SBO (small bowel obstruction) Current Visit: Yes Status: Acute Assessment & Plan: Patient is being transferred to [facility] (2) Azotemia Current Visit: Yes Status: Acute (3) Dehydration Current Visit: Yes Status: Acute (4) Enteritis Current Visit: Yes Status: Acute (5) Failure of outpatient treatment Current Visit: Yes Status: Acute (6) Nonspecific abdominal pain Current Visit: Yes Status: Acute (7) Vomiting Current Visit: Yes Status: Acute - Discharge Discharge Date: 06/27/17 Disposition: XFER OTHER Condition: Stable Prescriptions: No Action Rosuvastatin Calcium [Crestor] 10 mg DAILY Carvedilol 12.5 mg [Coreg 12.5 mg] 12.5 mg PO DAILY Ranitidine HCl 150 mg PO DAILY Pantoprazole Sodium [Protonix] 40 mg PO DAILY Ondansetron ODT 4 MG [Zofran Odt 4 mg] 4 mg PO Q6H PRN PRN #14 tab.rapdis PRN Reason: Vomiting Sucralfate 1000 mg/10 ml [Carafate SUSPENSION 1000 MG/10 ML] 100 mg PO ACHS #12 oz Follow up with: JANA SMITH MD [Primary Care Provider] - 1 Week
[2017-06-27] MEDS: Zofran 4 MG/2 ML VIAL IV PRN (21:04)
[2017-06-28] MEDS: Sodium Chloride 0.9% 1000 ML 1,000 ML IV SCH ×2 (01:22→15:39)
[2017-06-28] MEDS: Carafate SUSPENSION 1000 MG/10 ML PO SCH ×4 (08:19→22:07)
[2017-06-28] MEDS: COREG 12.5 MG PO SCH (09:44)
[2017-06-28] MEDS: ZOCOR 20MG PO SCH (09:44)
[2017-06-28] MEDS: Protonix 40MG Tablet PO SCH (09:44)
[2017-06-28] MEDS: Pepcid 20 MG PO SCH (09:44)
--- NOTE | 2017-06-28 12:51 | PCM.NOTE ---
Date and Time: 06/28/17 1249 Subjective Assessment: doing ok , awaiting transfer - Review of Systems Constitutional: No Fever, No Chills Eyes: No Symptoms Ears, Nose, & Throat: No Symptoms Respiratory: No Cough, No Short Of Breath Cardiac: No Chest Pain, No Edema, No Syncope Abdominal/Gastrointestinal: No Abdominal Pain, No Nausea, No Vomiting, No Diarrhea Genitourinary Symptoms: No Dysuria Musculoskeletal: No Back Pain, No Neck Pain Skin: No Rash Neurological: No Dizziness, No Focal Weakness, No Sensory Changes Psychological: No Symptoms Endocrine: No Symptoms Hematologic/Lymphatic: No Symptoms Immunological/Allergic: No Symptoms Objective Exam General Appearance: no apparent distress, alert Neurologic Exam: alert, oriented x 3, cooperative, normal mood/affect, nml cerebellar function, sensation nml, No motor deficits Skin Exam: normal color, warm, dry Eye Exam: PERRL, EOMI, eyes nml inspection Ears, Nose, Throat Exam: normal ENT inspection, pharynx normal, moist mucous membranes Neck Exam: normal inspection, non-tender, supple, full range of motion Respiratory Exam: normal breath sounds, lungs clear, No respiratory distress Cardiovascular Exam: regular rate/rhythm, normal heart sounds Gastrointestinal/Abdomen Exam: soft, No tenderness, No mass Extremity Exam: normal inspection, normal range of motion Back Exam: normal inspection, normal range of motion, No CVA tenderness, No vertebral tenderness Male Genitalia Exam: deferred Rectal Exam: deferred OBJECTIVE DATA Vital Signs: Vital Signs - 24 hr Temp Pulse Resp BP Pulse Ox 06/28/17 11:32 97 F 61 18 129/62 98 06/28/17 09:37 96.1 F 63 18 114/58 96 06/28/17 06:00 96.1 F 63 18 114/58 96 06/28/17 04:00 98.2 F 58 L 18 115/60 98 06/27/17 23:53 97.9 F 58 L 18 125/61 99 06/27/17 20:00 97.9 F 62 18 134/70 99 06/27/17 16:00 97.8 F 58 L 18 134/64 100 Pain Assessment - Last Documented Pain Intensity 0 Pain Scale Used 0-10 Pain Scale Intake and Output: Intake & Output 06/26/17 06/27/17 06/28/17 06/29/17 11:59 11:59 11:59 11:59 Intake Total 3271 2066 6509 Output Total 5627 7082 5900 200 [facility] [phone] Weight 81.6 kg 79.5 kg 79.1 kg Assessment/Plan (1) SBO (small bowel obstruction) Current Visit: Yes Status: Acute Code(s): K56.609 - UNSP INTESTNL OBST, UNSP TO PARTIAL VERSUS COMPLETE OBST (2) Azotemia Current Visit: Yes Status: Resolved Code(s): R79.89 - OTHER SPECIFIED ABNORMAL FINDINGS OF BLOOD CHEMISTRY (3) Dehydration Current Visit: Yes Status: Resolved Code(s): E86.0 - DEHYDRATION (4) Enteritis Current Visit: Yes Status: Resolved Code(s): K52.9 - NONINFECTIVE GASTROENTERITIS AND COLITIS, UNSPECIFIED (5) Failure of outpatient treatment Current Visit: Yes Status: Resolved Code(s): Z78.9 - OTHER SPECIFIED HEALTH STATUS (6) Nonspecific abdominal pain Current Visit: Yes Status: Resolved Code(s): R10.9 - UNSPECIFIED ABDOMINAL PAIN (7) Vomiting Current Visit: Yes Status: Acute Qualifiers: Vomiting type: unspecified Vomiting Intractability: non-intractable Nausea presence: with nausea Qualified Code(s): R11.2 - Nausea with vomiting, unspecified Code(s): R11.10 - VOMITING, UNSPECIFIED
[2017-06-29] MEDS: Sodium Chloride 0.9% 1000 ML 1,000 ML IV SCH (04:15)
[2017-06-29] MEDS: COREG 12.5 MG PO SCH ×2 (08:53→08:54)
[2017-06-29] MEDS: Carafate SUSPENSION 1000 MG/10 ML PO SCH ×4 (08:53→22:10)
[2017-06-29] MEDS: Protonix 40MG Tablet PO SCH (08:53)
[2017-06-29] MEDS: Pepcid 20 MG PO SCH (08:53)
[2017-06-29] MEDS: ZOCOR 20MG PO SCH (08:54)
--- NOTE | 2017-06-29 11:45 | PCM.NOTE ---
Date and Time: 06/29/17 1144 Subjective Assessment: doing better - Review of Systems Constitutional: No Fever, No Chills Eyes: No Symptoms Ears, Nose, & Throat: No Symptoms Respiratory: No Cough, No Short Of Breath Cardiac: No Chest Pain, No Edema, No Syncope Abdominal/Gastrointestinal: No Abdominal Pain, No Nausea, No Vomiting, No Diarrhea Genitourinary Symptoms: No Dysuria Musculoskeletal: No Back Pain, No Neck Pain Skin: No Rash Neurological: No Dizziness, No Focal Weakness, No Sensory Changes Psychological: No Symptoms Endocrine: No Symptoms Hematologic/Lymphatic: No Symptoms Immunological/Allergic: No Symptoms Objective Exam General Appearance: no apparent distress, alert Neurologic Exam: alert, oriented x 3, cooperative, normal mood/affect, nml cerebellar function, sensation nml, No motor deficits Skin Exam: normal color, warm, dry Eye Exam: PERRL, EOMI, eyes nml inspection Ears, Nose, Throat Exam: normal ENT inspection, pharynx normal, moist mucous membranes Neck Exam: normal inspection, non-tender, supple, full range of motion Respiratory Exam: normal breath sounds, lungs clear, No respiratory distress Cardiovascular Exam: regular rate/rhythm, normal heart sounds Gastrointestinal/Abdomen Exam: soft, No tenderness, No mass Extremity Exam: normal inspection, normal range of motion Back Exam: normal inspection, normal range of motion, No CVA tenderness, No vertebral tenderness Male Genitalia Exam: deferred Rectal Exam: deferred OBJECTIVE DATA Vital Signs: Vital Signs - 24 hr Temp Pulse Resp BP Pulse Ox 06/29/17 11:11 97.6 F 61 18 124/71 98 06/29/17 07:16 97.4 F 66 18 136/89 99 06/29/17 04:00 97.9 F 70 19 140/73 97 06/28/17 23:00 97.0 F 58 L 18 129/73 99 06/28/17 19:00 98.1 F 59 L 18 132/74 100 06/28/17 15:00 97.9 F 78 18 149/72 95 Pain Assessment - Last Documented Pain Intensity 0 Pain Scale Used 0-10 Pain Scale Intake and Output: Intake & Output 06/26/17 06/27/17 06/28/17 06/29/17 11:59 11:59 11:59 11:59 Intake Total 2363 0181 4320 2560 Output Total 8791 3097 7911 4292 Balance -056 -0935 -2368 76 Weight 81.6 kg 79.5 kg 79.1 kg 78.4 kg Radiology Exams: Radiology Procedures Category Date Time Status SMALL BOWEL SERIES Urgent Exams 06/29/17 Ordered Multi-Disciplinary Progress Notes: Multi-Disciplinary Progress Notes 06/29/17 11:42 Case Management Note by Nisha Mendiola ORDER RECEIVED FROM DR. SINGH. NOTIFIED DR. SINGH THAT STILL DOES NOT HAVE A BED. Initialized on 06/29/17 11:42 - END OF NOTE 06/29/17 08:44 Case Management Note by Nisha Mendiola CALL TO [facility] TO FOLLOWUP ON BED. BED CONTROL REPORTS THAT PT WILL BE GOING TO [facility] BUT THEY STILL HAVE NO AVAIL BEDS. HOPEFUL THAT THEY WILL HAVE A BED THIS AFTERNOON. Initialized on 06/29/17 08:44 - END OF NOTE 06/28/17 13:28 Case Management Note by Estefania Young Dr. making rounds. pt states he is passing gas and hungry. dr. singh had us call dr. gaytan to find out if he wants repeat xrays. dr. gaytan's nurse notified, she says she will call back with orders. Initialized on 06/28/17 13:28 - END OF NOTE Assessment/Plan (1) SBO (small bowel obstruction) Current Visit: Yes Status: Acute Code(s): K56.609 - UNSP INTESTNL OBST, UNSP TO PARTIAL VERSUS COMPLETE OBST (2) Azotemia Current Visit: Yes Status: Resolved Code(s): R79.89 - OTHER SPECIFIED ABNORMAL FINDINGS OF BLOOD CHEMISTRY (3) Dehydration Current Visit: Yes Status: Resolved Code(s): E86.0 - DEHYDRATION (4) Enteritis Current Visit: Yes Status: Resolved Code(s): K52.9 - NONINFECTIVE GASTROENTERITIS AND COLITIS, UNSPECIFIED (5) Failure of outpatient treatment Current Visit: Yes Status: Resolved Code(s): Z78.9 - OTHER SPECIFIED HEALTH STATUS (6) Nonspecific abdominal pain Current Visit: Yes Status: Resolved Code(s): R10.9 - UNSPECIFIED ABDOMINAL PAIN (7) Vomiting Current Visit: Yes Status: Acute Qualifiers: Vomiting type: unspecified Vomiting Intractability: non-intractable Nausea presence: with nausea Qualified Code(s): R11.2 - Nausea with vomiting, unspecified Code(s): R11.10 - VOMITING, UNSPECIFIED
--- NOTE | 2017-06-29 12:22 | XRAY ---
Indication: Follow polyp junction. Comparison: Small bowel follow-through exam June 26, 2017. Supine and upright abdomen demonstrates residual flocculated enteric contrast now seen distally to the level of the rectum. Contrast limits evaluation of the solid organs. There are 2 midabdomen small bowel loops mildly fluid distended with fluid leveling. New NG tube tip in the stomach. Osseous structures intact. Impression: Residual enteric contrast from recent GI exam seen distally as detailed. Patient also reports normal passage of gas. However there are 2 small bowel loops with fluid leveling. Findings could represent resolving versus partial bowel obstruction.
[2017-06-29] MEDS: Zofran 4 MG/2 ML VIAL IV PRN (22:10)
[2017-06-30] MEDS: Carafate SUSPENSION 1000 MG/10 ML PO SCH ×4 (07:33→21:13)
--- NOTE | 2017-06-30 08:49 | XRAY ---
Indication: Bowel obstruction. Comparison: One day earlier. 2 views of the abdomen demonstrates new radiopacity in the stomach and proximal small bowel loops presumed ingested barium versus medication. Previous distal enteric contrast from recent GI exam has progressed into the rectum. Findings again obscures the solid organs. There still remains minimal midabdomen small bowel fluid leveling but less than before. Remaining abdomen including NG tube unchanged. Impression: Previous small bowel fluid leveling has improved. Also antegrade movement of the barium now in the rectum would suggest resolved obstruction. New gastric and proximal small bowel radiopacity either ingested barium versus medication.
[2017-06-30] MEDS: COREG 12.5 MG PO SCH (09:25)
[2017-06-30] MEDS: Pepcid 20 MG PO SCH (09:25)
[2017-06-30] MEDS: Protonix 40MG Tablet PO SCH (09:25)
[2017-06-30] MEDS: ZOCOR 20MG PO SCH (09:25)
--- NOTE | 2017-06-30 13:00 | PCM.NOTE ---
Date and Time: 06/30/17 1259 Subjective Assessment: still abdominal pain, 2000 cc NG tube output - Review of Systems Constitutional: No Fever, No Chills Eyes: No Symptoms Ears, Nose, & Throat: No Symptoms Respiratory: No Cough, No Short Of Breath Cardiac: No Chest Pain, No Edema, No Syncope Abdominal/Gastrointestinal: Abdominal Pain, No Nausea, No Vomiting, No Diarrhea Genitourinary Symptoms: No Dysuria Musculoskeletal: No Back Pain, No Neck Pain Skin: No Rash Neurological: No Dizziness, No Focal Weakness, No Sensory Changes Psychological: No Symptoms Endocrine: No Symptoms Hematologic/Lymphatic: No Symptoms Immunological/Allergic: No Symptoms Objective Exam General Appearance: no apparent distress, alert Neurologic Exam: alert, oriented x 3, cooperative, normal mood/affect, nml cerebellar function, sensation nml, No motor deficits Skin Exam: normal color, warm, dry Eye Exam: PERRL, EOMI, eyes nml inspection Ears, Nose, Throat Exam: normal ENT inspection, pharynx normal, moist mucous membranes Neck Exam: normal inspection, non-tender, supple, full range of motion Respiratory Exam: normal breath sounds, lungs clear, No respiratory distress Cardiovascular Exam: regular rate/rhythm, normal heart sounds Gastrointestinal/Abdomen Exam: soft, No tenderness, No mass Extremity Exam: normal inspection, normal range of motion Back Exam: normal inspection, normal range of motion, No CVA tenderness, No vertebral tenderness Male Genitalia Exam: deferred Rectal Exam: deferred OBJECTIVE DATA Vital Signs: Vital Signs - 24 hr Temp Pulse Resp BP BP Pulse Ox 06/30/17 11:49 98.2 F 73 16 128/76 123/77 96 06/30/17 07:55 98.4 F 67 16 128/76 95 06/30/17 03:30 98.2 F 60 16 129/60 99 06/30/17 00:00 98.4 F 67 18 113/63 98 06/29/17 20:00 98.3 F 70 16 131/74 98 06/29/17 16:04 97.8 F 70 20 128/66 96 Pain Assessment - Last Documented Pain Intensity 0 Pain Scale Used 0-10 Pain Scale Intake and Output: Intake & Output 06/28/17 06/29/17 06/30/17 07/01/17 11:59 11:59 11:59 11:59 Intake Total 2878 6215 7069 Output Total 0517 5506 6055 Balance -2361 76 -897 Weight 79.1 kg 78.4 kg 76.3 kg Radiology Exams: Radiology Procedures Category Date Time Status ABDOMEN 2 VIEW Urgent Exams 06/29/17 12:06 Completed ABDOMEN 2 VIEW Urgent Exams 06/30/17 08:00 Completed Multi-Disciplinary Progress Notes: Multi-Disciplinary Progress Notes 06/30/17 09:44 Case Management Note by Estefania Young SPO[facility] WITH [facility]. THEY ARE STILL ANTICIPATING DISCHARGES TODAY AND WILL LET US KNOW WHEN A BED BECOMES AVAILABLE. Initialized on 06/30/17 09:44 - END OF NOTE 06/29/17 15:26 Nutrition Note by Anne Antunez F/u Note: Note diet advanced to clear with ave 50% po intake. BUN 21, other labs wnl. Pt reports passing gas and is walking halls. Pt with inadequate oral food/navin intake as r/t restricted diet a/e/b clear diet order. Recommend to advance diet beyond clear as medically able. Will monitor and f/u prn. ARNIE Schmidt Initialized on 06/29/17 15:26 - END OF NOTE Assessment/Plan (1) SBO (small bowel obstruction) Current Visit: Yes Status: Acute Assessment & Plan: Chief Complaint Diagnosis SMALL BOWEL OBSTRUCTION Allergies Allergy/AdvReac Type Severity Reaction Status Date / Time No Known Drug Allergies Allergy Verified 06/22/17 16:36 Vital Signs (Last 24 hours) Temp Pulse Resp BP BP Pulse Ox 06/30/17 11:49 98.2 F 73 16 128/76 123/77 96 06/30/17 07:55 98.4 F 67 16 128/76 95 06/30/17 03:30 98.2 F 60 16 129/60 99 06/30/17 00:00 98.4 F 67 18 113/63 98 06/29/17 20:00 98.3 F 70 16 131/74 98 06/29/17 16:04 97.8 F 70 20 128/66 96 Current Medications Generic Name Dose Route Start Last Admin Trade Name Freq PRN Reason Stop Dose Admin Carvedilol 12.5 mg 06/23/17 10:00 06/30/17 09:25 Coreg 12.5 Mg PO 04/08/18 09:59 12.5 mg DAILY PAKO Administration Famotidine 20 mg 06/23/17 10:00 06/30/17 09:25 Pepcid 20 Mg PO 07/23/17 09:59 20 mg DAILY PAKO Administration Sodium Chloride 1,000 mls @ 100 mls/hr 06/23/17 11:00 06/29/17 04:15 Sodium Chloride 0.9% 1000 Ml IV 07/23/17 10:59 100 mls/hr .Q10H PAKO Administration Ondansetron HCl 4 mg 06/22/17 19:28 06/29/17 22:10 Zofran 4 Mg/2 Ml Vial IV 07/22/17 19:27 4 mg Q6H PRN PRN Administration NAUSEA/VOMITING Pantoprazole Sodium 40 mg 06/23/17 10:00 06/30/17 09:25 Protonix 40mg Tablet PO 07/23/17 09:59 40 mg DAILY PAKO Administration Simvastatin 20 mg 06/23/17 10:00 06/30/17 09:25 Zocor 20mg PO 07/23/17 09:59 20 mg DAILY PAKO Administration Sucralfate 1,000 mg 06/23/17 11:30 06/30/17 11:33 Carafate Suspension 1000 Mg/10 Ml PO 07/23/17 11:29 1,000 mg ACHS PAKO Administration Discontinued Medications Generic Name Dose Route Start Last Admin Trade Name Freq PRN Reason Stop Dose Admin Sodium Chloride 1,000 mls @ 100 mls/hr 06/22/17 18:00 06/22/17 18:29 Sodium Chloride 0.9% 1000 Ml IV 07/22/17 17:59 100 mls/hr .Q10H PAKO Administration Sodium Chloride Confirm 06/22/17 18:26 Sodium Chloride 0.9% 1000 Ml Administered 06/22/17 18:27 Dose 1,000 mls @ ud .ROUTE .STK-MED ONE Sodium Chloride 1,000 mls @ 100 mls/hr 06/22/17 19:28 06/23/17 00:08 Sodium Chloride 0.9% 1000 Ml IV 07/22/17 19:27 100 mls/hr .Q10H PAKO Administration Sodium Chloride 1,000 mls @ 999 mls/hr 06/23/17 08:54 06/23/17 09:21 Sodium Chloride 0.9% 1000 Ml IV 06/23/17 09:54 999 mls/hr .Q1H1M STA Administration Sodium Chloride 1,000 mls @ 999 mls/hr 06/23/17 10:00 06/23/17 12:00 Sodium Chloride 0.9% 1000 Ml IV 06/23/17 11:00 999 mls/hr .Q1H1M ONE Administration Ondansetron HCl 4 mg 06/22/17 17:55 06/22/17 18:29 Zofran 4 Mg/2 Ml Vial IV 06/22/17 17:56 4 mg STAT ONE Administration Ondansetron HCl Confirm 06/22/17 18:28 Zofran 4 Mg/2 Ml Vial Administered 06/22/17 18:29 Dose 4 mg .ROUTE .STK-MED ONE Potassium Chloride 40 meq 06/25/17 15:00 06/25/17 15:03 Klor Con 10 Meq PO 06/25/17 15:01 40 meq ONCE ONE Administration Intake & Output (Last 24 hours) 06/28/17 06/29/17 06/30/17 07/01/17 11:59 11:59 11:59 11:59 Intake Total 3539 2566 2953 Output Total 5900 2490 3850 Balance -2361 76 -897 Weight 79.1 kg 78.4 kg 76.3 kg Orders (Last 24 hours) Category Date Time Status Miscellaneous Nursing Order ROUTINE Care 06/29/17 13:42 Active ABDOMEN 2 VIEW Urgent Exams 06/29/17 12:06 Completed ABDOMEN 2 VIEW Urgent Exams 06/30/17 08:00 Completed Patient Care Notes (Last 24 hours) 06/30/17 09:44 Case Management Note by Estefania Young SPOKE WITH JAIMEE AT [facility]. THEY ARE STILL ANTICIPATING DISCHARGES TODAY AND WILL LET US KNOW WHEN A BED BECOMES AVAILABLE. Initialized on 06/30/17 09:44 - END OF NOTE 06/30/17 02:30 Nursing Note by Saima Rooney from [facility] called for update and current vitals on pt, info provided Initialized on 06/30/17 02:30 - END OF NOTE 06/30/17 02:10 Nursing Note by Saima Rooney replaced NG canister, 600mL out in 1 hr. Initialized on 06/30/17 02:10 - END OF NOTE 06/30/17 01:39 Nursing Note by Saima Rooney pt requested that NG be hooked back up to suction, he said he was feeling really full. this was done at 0110 Initialized on 06/30/17 01:39 - END OF NOTE 06/29/17 16:33 Nursing Note by Yue Connors Pt has had NG cllamped off of suction since new order for Cl liquid diet. Pt has ambulated in hallway several times. IV site remain sl d/t pt tolerating cl liquid diet at this time. Initialized on 06/29/17 16:33 - END OF NOTE 06/29/17 15:50 Nursing Note by Yue Connors from [facility] called for an update on V/S and pt. Initialized on 06/29/17 15:50 - END OF NOTE 06/29/17 15:26 Nutrition Note by Anne Antunez F/u Note: Note diet advanced to clear with ave 50% po intake. BUN 21, other labs wnl. Pt reports passing gas and is walking halls. Pt with inadequate oral food/navin intake as r/t restricted diet a/e/b clear diet order. Recommend to advance diet beyond clear as medically able. Will monitor and f/u prn. ARNIE Schmidt Initialized on 06/29/17 15:26 - END OF NOTE Code(s): K56.609 - UNSP INTESTNL OBST, UNSP TO PARTIAL VERSUS COMPLETE OBST (2) Azotemia Current Visit: Yes Status: Resolved Code(s): R79.89 - OTHER SPECIFIED ABNORMAL FINDINGS OF BLOOD CHEMISTRY (3) Dehydration Current Visit: Yes Status: Resolved Code(s): E86.0 - DEHYDRATION (4) Enteritis Current Visit: Yes Status: Resolved Code(s): K52.9 - NONINFECTIVE GASTROENTERITIS AND COLITIS, UNSPECIFIED (5) Failure of outpatient treatment Current Visit: Yes Status: Resolved Code(s): Z78.9 - OTHER SPECIFIED HEALTH STATUS (6) Nonspecific abdominal pain Current Visit: Yes Status: Resolved Code(s): R10.9 - UNSPECIFIED ABDOMINAL PAIN (7) Vomiting Current Visit: Yes Status: Acute Qualifiers: Vomiting type: unspecified Vomiting Intractability: non-intractable Nausea presence: with nausea Qualified Code(s): R11.2 - Nausea with vomiting, unspecified Code(s): R11.10 - VOMITING, UNSPECIFIED
[2017-07-01 07:42] VITALS: BP 132/75; PULSE 71; O2SAT 99
[2017-07-01] MEDS: ZOCOR 20MG PO SCH (07:53)
[2017-07-01] MEDS: Carafate SUSPENSION 1000 MG/10 ML PO SCH ×2 (07:53→11:55)
[2017-07-01] MEDS: Pepcid 20 MG PO SCH (07:54)
[2017-07-01] MEDS: COREG 12.5 MG PO SCH (07:54)
[2017-07-01] MEDS: Protonix 40MG Tablet PO SCH (07:54)
[2017-07-01] MEDS: Sodium Chloride 0.9% 1000 ML 1,000 ML IV SCH ×2 (07:58→11:03)
== END 2017-07-01 12:20 | disposition short-term general hospital (02) | DRG 390 ==
LOC: ED 16:04 → MED SURG 19:20 → OBSVTOIN 06-23 12:48
PROVIDERS: ADMIT General Practice; ATTEND General Practice
DX: K56.609 Unspecified intestinal obstruction, unspecified as to partial versus complete obstruction (principal); R79.89 Other specified abnormal findings of blood chemistry; E86.0 Dehydration; K52.9 Noninfective gastroenteritis and colitis, unspecified; Z93.0 Tracheostomy status; Z90.02 Acquired absence of larynx
CPT/HCPCS: 36000; 36415; 74021; 74022; 74176; 74250; 80048; 80053; 81000; 83605; 83690; 85025; 85027; 87077; 87086; 87186; 93005; 94760; 96360; 96374; 99285; G0378; J2405; A9270-GY

== ENCOUNTER 2017-12-21 16:34 | Emergency (ER) | payer BC, MEDICARE, OTHER, SELFPAY ==
[2017-12-21] MEDS ORDERED: Sodium Chloride 0.9% 1000 ML 1,000 ML IV SCH (17:15)
[2017-12-21] MEDS ORDERED: Sodium Chloride 0.9% 1000 ML 1,000 ML ONE (17:18)
--- NOTE | 2017-12-21 17:18 | ERPHSYRPT ---
- History of Present Illness Time Seen by Provider: 12/21/17 17:03 Source: patient Exam Limitations: no limitations Patient Subjective Stated Complaint: PT WAS SENT HERE VIA ONCOLOGY IN [facility] FOR WEAKNESS, SOB, RIGHT ARM PAIN. DRS OFFICE WANTED TO MAKE SURE PT WAS NOT ANEMIC , PT IS IN A CLINICAL TRIAL AND IS 7 DAYS POST CHEMO. PT HAS HX OF CANCER OF NECK,HEAD AND TUMOR ON LUNG Triage Nursing Assessment: CHEST CLEAR, PT ALERT, RESP EASY,SKIN W/D/PALE, NO EDEMA Physician History: This is a 57-year-old white male with history of recurrent head and neck cancer , hyperlipidemia, high blood pressure, GERD, throat cancer, who communicates via writing secondary to tracheostomy Who is on chemotherapy with last chemotherapy 7 days ago He arrives with complaint of shortness of breath right arm pain feeling weak symptoms for 5 days. He denies any fevers. Patient denies chest pain. Past medical history includes recurrent. Neck cancer, hyperlipidemia, high blood pressure, GERD, throat cancer, old chart shows a tumor in the right lung, Past surgical history includes tracheostomy and colon resection social history includes a former smoker Timing/Duration: day(s) (5 days), worse Severity: moderate Modifying Factors: Improves With: other (patient undergoing chemotherapy last treatment 7 days ago) Associated Symptoms: shortness of breath, weakness, other (right arm pain), No nausea, No vomiting, No abdominal pain, No heartburn, No diaphoresis, No cough, No chills, No chest pain, No fever, No headaches, No loss of appetite, No malaise, No rash, No syncope, No seizure Allergies/Adverse Reactions: No Known Drug Allergies Allergy (Verified 12/21/17 16:59) Home Medications: Rosuvastatin Calcium [Crestor] 10 mg DAILY 04/08/13 [History] Carvedilol 12.5 mg [Coreg 12.5 mg] 12.5 mg PO DAILY 06/19/17 [History] Pantoprazole Sodium [Protonix] 40 mg PO DAILY 06/19/17 [History] raNITIdine HCl [Ranitidine HCl] 150 mg PO DAILY 06/19/17 [History] Ferrous Sulfate 325 mg DAILY 12/21/17 [History] Hydrocodone/Acetaminophen [Hydrocodone-Acetamin 5-325 mg] 1 ea TID 09/06/18 [ History] Hx Tetanus, Diphtheria Vaccination/Date Given: Yes Hx Influenza Vaccination/Date Given: No Hx Pneumococcal Vaccination/Date Given: No Immunizations Up to Date: Yes - Review of Systems Constitutional: Weakness, No Fever, No Chills, No Fatigue Eyes: No Symptoms Ears, Nose, & Throat: No Symptoms Respiratory: Dyspnea, No Cough, No Cyanosis, No Dyspnea on Exertion (ARRIETA), No Stridor Abdominal/Gastrointestinal: No Abdominal Pain, No Nausea, No Vomiting, No Diarrhea Genitourinary Symptoms: No Dysuria Musculoskeletal: Other (right arm pain) Skin: No Rash Neurological: No Dizziness, No Focal Weakness, No Sensory Changes Psychological: No Symptoms Endocrine: No Symptoms All Other Systems: Reviewed and Negative - Past Medical History Pertinent Past Medical History: Yes Neurological History: No Pertinent History ENT History: No Pertinent History Cardiac History: High Cholesterol, Hypertension Respiratory History: Other Endocrine Medical History: No Pertinent History Musculoskeletal History: No Pertinent History GI Medical History: GERD History: No Pertinent History Psycho-Social History: No Pertinent History Male Reproductive Disorders: No Pertinent History Other Medical History: throat CA. pt communicated with writing r/t trach, TUMOR RIGHT LUNG - Past Surgical History Past Surgical History: Yes Neuro Surgical History: No Pertinent History Cardiac: No Pertinent History Respiratory: Tracheostomy Gastrointestinal: Colon Resection Genitourinary: No Pertinent History Musculoskeletal: No Pertinent History Male Surgical History: No Pertinent History - Social History Smoking Status: Former smoker Exposure to second hand smoke: No Alcohol Use: None Drug Use: none Patient Lives Alone: No Significant Family History: no pertinent family hx - Nursing Vital Signs Nursing Vital Signs: Initial Vital Signs Temperature 98.2 F 12/21/17 16:52 Pulse Rate 96 H 12/21/17 16:52 Respiratory Rate 20 12/21/17 16:52 Blood Pressure 154/94 12/21/17 16:52 O2 Sat by Pulse Oximetry 97 12/21/17 16:52 Pain Scale Pain Intensity 8 - Physical Exam General Appearance: no apparent distress, alert Eye Exam: PERRL/EOMI, eyes nml inspection Ears, Nose, Throat Exam: normal ENT inspection, TMs normal, pharynx normal, moist mucous membranes Neck Exam: normal inspection, non-tender, supple, full range of motion, other ( is trcheostomy in place) Respiratory Exam: normal breath sounds, lungs clear, No respiratory distress Cardiovascular Exam: regular rate/rhythm, normal heart sounds, normal peripheral pulses Gastrointestinal/Abdomen Exam: soft, normal bowel sounds, No tenderness, No mass Back Exam: normal inspection, normal range of motion, No CVA tenderness, No vertebral tenderness Extremity Exam: normal inspection, normal range of motion, pelvis stable Neurologic Exam: alert, oriented x 3, cooperative, 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, normal mood/affect, nml cerebellar function, nml station & gait, sensation nml, No motor deficits Skin Exam: normal color, warm, dry, No rash SpO2 Interpretation: normal (97%) SpO2: 97 - Course Nursing assessment & vital signs reviewed: Yes EKG Interpreted by Me: RATE (96bpm), Sinus Rhythm, NORMAL AXIS, Other (EKG: Sinus rhythm, 96 bpm, normal axis, no acute ST or T wave changes) - Radiology Exams Chest X-ray Interpretation: Discussed w/ radiologist (chest x-ray: New complete right hemithorax opacification due to large effusion with midline shifting.) Ordered Tests: Active Orders 24 hr Category Date Time Status EKG-ER Only STAT Care 12/21/17 17:10 Active IV Insertion STAT Care 12/21/17 17:10 Active CHEST 1 VIEW (PORTABLE) Stat Exams 12/21/17 17:11 Taken SHOULDER Stat Exams 12/21/17 17:27 Taken BLOOD CULTURE Stat Lab 12/21/17 17:29 Received CBC W DIFF Stat Lab 12/21/17 17:15 Completed CMP Stat Lab 12/21/17 16:45 Completed D-DIMER QUANTITATION Stat Lab 12/21/17 16:45 Completed Lactic Acid Stat Lab 12/21/17 17:39 Completed UA W/RFX UR CULTURE Stat Lab 12/21/17 17:22 Uncollected Medication Summary Generic Name Dose Route Start Last Admin Trade Name Freq PRN Reason Stop Dose Admin Sodium Chloride 1,000 mls @ 60 mls/hr 12/21/17 17:15 12/21/17 17:20 Sodium Chloride 0.9% 1000 Ml IV 01/20/18 17:14 60 mls/hr .[id number] PAKO Administration Discontinued Medications Generic Name Dose Route Start Last Admin Trade Name Freq PRN Reason Stop Dose Admin Morphine Sulfate 4 mg 12/21/17 18:05 12/21/17 18:28 Morphine Sulfate 4 Mg Inj IV 12/21/17 18:06 4 mg STAT ONE Administration Morphine Sulfate Confirm 12/21/17 18:27 Morphine Sulfate 4 Mg Inj Administered 12/21/17 18:28 Dose 4 mg .ROUTE .K-MED ONE Lab/Rad Data: Laboratory Result Diagrams 12/21/17 17:15 12/21/17 16:45 Laboratory Results 12/21/17 12/21/17 12/21/17 Range/Units 17:39 17:15 16:45 WBC 3.4 L (4.0-10.5) K/mm3 RBC 3.23 L (4.1-5.6) M/mm3 Hgb 7.7 L (12.5-18.0) gm/dl Hct 24.6 L (42-50) % MCV 76.2 L (78-100) fl MCH 23.8 L (26-32) pg MCHC 31.3 L (32-36) g/dl RDW 20.1 H (11.5-14.0) % Plt Count 496 H (150-450) K/mm3 MPV 8.6 (6-9.5) fl Gran % 75.6 H (36.0-66.0) % Eos # (Auto) 0.03 (0-0.5) Absolute Lymphs (auto) 0.42 L (1.0-4.6) Absolute Monos (auto) 0.35 (0.0-1.3) Lymphocytes % 12.5 L (24.0-44.0) % Monocytes % 10.4 (0.0-12.0) % Eosinophils % 0.9 (0.00-5.0) % Basophils % 0.6 (0.0-0.4) % Absolute Granulocytes 2.54 (1.4-6.9) Basophils # 0.02 (0-0.4) D-Dimer 1576 H* (215-500) ng/mL Sodium (137-145) mmol/L Potassium (3.5-5.1) mmol/L Chloride (98-107) mmol/L Carbon Dioxide (22-30) mmol/L Anion Gap (5-15) MEQ/L BUN (9-20) mg/dL Creatinine (0.66-1.25) mg/dL Estimated GFR ML/MIN Glucose (74-106) mg/dL Lactic Acid 1.8 (0.4-2.0) Calcium (8.4-10.2) mg/dL Total Bilirubin (0.2-1.3) mg/dL AST (17-59) U/L ALT (0-50) U/L Alkaline Phosphatase (38-126) U/L Serum Total Protein (6.3-8.2) g/dL Albumin (3.5-5.0) g/dL 12/21/17 Range/Units 16:45 WBC (4.0-10.5) K/mm3 RBC (4.1-5.6) M/mm3 Hgb (12.5-18.0) gm/dl Hct (42-50) % MCV (78-100) fl MCH (26-32) pg MCHC (32-36) g/dl RDW (11.5-14.0) % Plt Count (150-450) K/mm3 MPV (6-9.5) fl Gran % (36.0-66.0) % Eos # (Auto) (0-0.5) Absolute Lymphs (auto) (1.0-4.6) Absolute Monos (auto) (0.0-1.3) Lymphocytes % (24.0-44.0) % Monocytes % (0.0-12.0) % Eosinophils % (0.00-5.0) % Basophils % (0.0-0.4) % Absolute Granulocytes (1.4-6.9) Basophils # (0-0.4) D-Dimer (215-500) ng/mL Sodium 136 L (137-145) mmol/L Potassium 3.9 (3.5-5.1) mmol/L Chloride 98 (98-107) mmol/L Carbon Dioxide 24 (22-30) mmol/L Anion Gap 17.9 H (5-15) MEQ/L BUN 15 (9-20) mg/dL Creatinine 0.95 (0.66-1.25) mg/dL Estimated GFR > 60.0 ML/MIN Glucose 125 H (74-106) mg/dL Lactic Acid (0.4-2.0) Calcium 10.1 (8.4-10.2) mg/dL Total Bilirubin 0.30 (0.2-1.3) mg/dL AST 19 (17-59) U/L ALT 20 (0-50) U/L Alkaline Phosphatase 114 (38-126) U/L Serum Total Protein 7.9 (6.3-8.2) g/dL Albumin 4.0 (3.5-5.0) g/dL - Progress Progress: improved Progress Note: 12/21/17 17:19 57-year-old white male with history of recurrent head and neck cancer undergoing chemotherapy, hyperlipidemia, high blood pressure, GERD, throat cancer, who has had a tracheostomy and communicates via writing. Apparently referred to this ER through his oncology nurse. . Patient has been complaining of right arm pain he's been short of breath feeling weak he denies any chest pain he has no fevers. He did undergo chemotherapy last chemotherapy was 7 days ago. The oncology nurse expressed the concern that he possibly could be anemic and that some of his symptoms are very common at this stage after chemotherapy. Patient is alert and oriented very cooperative to examination he does not appear to be in acute distress. I have ordered CBC CMP blood cultures EKG chest x-ray d-dimer. Will go ahead and order urinalysis. . 12/21/17 17:28 The patient is offered pain medcations he does not want any at this time. 12/21/17 18:04 Patient was elevated d-dimer. Will obtain CTA chest. He is now asking for some morphine for pain. Patient's hemoglobin is 7.7. 12/21/17 19:20 Patient is feeling much better after morphine he states he is in no distress at this time. Unfortunately chest x-ray shows a new complete right hemithorax opacification due to large effusion with midline shifting. CT has been canceled. Will contact patient's physician at [facility]. 12/21/17 20:[address] Luna was contacted it was felt that the patient needed to be transferred to [facility]. I contacted Dr. Muñiz at [facility] and patient has been accepted for transfer. - Departure Time of Disposition: 20:21 Departure Disposition: Transfer ([facility] Dr Muñiz) Clinical Impression: Pleural effusion, right, Shortness of breath, History of head and neck cancer, History of chemotherapy, Weakness Right shoulder pain Qualifiers: Chronicity: acute Qualified Code(s): M25.511 - Pain in right shoulder Condition: Fair Critical Care Time: No Referrals: JANA SMITH MD [Primary Care Provider] -
[2017-12-21 17:33] LABS: ALKALINE PHOSPHATASE 114 U/L (38-126); ANION GAP 17.9 MEQ/L (5-15); BLOOD UREA NITROGEN 15 mg/dL (9-20); CHLORIDE 98 mmol/L (98-107); Calcium 10.1 mg/dL (8.4-10.2); Carbon Dioxide 24 mmol/L (22-30); Creatinine 1 0.95 mg/dL (0.66-1.25); Glucose 125 mg/dL (74-106); Potassium 3.9 mmol/L (3.5-5.1); SGOT/AST 19 U/L (17-59); SGPT/ALT 20 U/L (0-50); SODIUM 136 mmol/L (137-145); Total Protein 7.9 g/dL (6.3-8.2)
[2017-12-21 17:57] LABS: BASOPHIL % 0.6 % (0.0-0.4); Basophil (Absolute #) 0.02 (0-0.4); Eosinophil % 0.9 % (0.00-5.0); Eosinophil (Absolute #) 0.03 (0-0.5); Granulocyte Absolute (ANC) 2.54 (1.4-6.9); Granulocytes % 75.6 % (36.0-66.0); Hematocrit 24.6 % (42-50); Hemoglobin 7.7 gm/dl (12.5-18.0); Lymphocyte (Absolute #) 0.42 (1.0-4.6); Lymphocytes % 12.5 % (24.0-44.0); Mean Cell Volume 76.2 fl (78-100); Mean Corpuscular Hemoglobin 23.8 pg (26-32); Mean Corpuscular Hgb Concent. 31.3 g/dl (32-36); Mean Platelet Volume 8.6 fl (6-9.5); Monocyte (Absolute #) 0.35 (0.0-1.3); Monocytes % 10.4 % (0.0-12.0); Platelet Count 496 K/mm3 (150-450); Red Blood Count 3.23 M/mm3 (4.1-5.6); Red Cell Distribution Width 20.1 % (11.5-14.0); White Blood Count 3.4 K/mm3 (4.0-10.5)
[2017-12-21] MEDS ORDERED: MORPHINE SULFATE 4 MG INJ IV ONE ×2 (18:05→20:23)
[2017-12-21] MEDS ORDERED: MORPHINE SULFATE 4 MG INJ ONE ×2 (18:27→21:53)
[2017-12-21 22:27] VITALS: BP 128/88; PULSE 95; O2SAT 98
[2017-12-21 23:47] LABS: Slide Review 1 YES
--- NOTE | 2017-12-22 08:43 | XRAY ---
Indication: Short of breath. Patient reports right lung tumor. Comparison: June 22, 2017. Portable chest demonstrates new complete opacification of the right hemithorax due to large effusion with atelectasis. There is mass effect with the heart and mediastinal structures deviated to the left. Left lung clear. Heart is not enlarged. Bony thorax intact again with mild degenerative changes. Stable bilateral surgical clips at the base of the neck. Impression: New large right effusion with atelectasis. Diagnostic thoracentesis may yield further information.
--- NOTE | 2017-12-22 09:10 | XRAY ---
Indication: Right shoulder pain. Comparison: None 3 views of the right shoulder demonstrates mild/moderate AC degenerative arthropathy and numerous bilateral neck vascular calcifications. No other bony, articular, or soft tissue abnormalities. Chest reported separately.
== END 2017-12-21 22:00 | disposition short-term general hospital (02) ==
LOC: ED 16:34
DX: J90 Pleural effusion, not elsewhere classified (principal); R06.02 Shortness of breath; Z85.819 Personal history of malignant neoplasm of unspecified site of lip, oral cavity, and pharynx; Z90.49 Acquired absence of other specified parts of digestive tract; K21.9 Gastro-esophageal reflux disease without esophagitis; M79.601 Pain in right arm; E78.5 Hyperlipidemia, unspecified; I10 Essential (primary) hypertension; Z93.0 Tracheostomy status
CPT/HCPCS: 36000; 36415; 71045; 73030; 80053; 83605; 85025; 85379; 87040; 93005; 96360; 96374; 96375; 96376; 99285; J2270

== ENCOUNTER 2018-02-13 18:23 | Emergency (ER) | payer OTHER ==
[2018-02-13 19:53] LABS: BASOPHIL % 0.2 % (0.0-0.4); Basophil (Absolute #) 0.02 (0-0.4); Eosinophil % 0.6 % (0.00-5.0); Eosinophil (Absolute #) 0.05 (0-0.5); Granulocyte Absolute (ANC) 7.04 (1.4-6.9); Granulocytes % 83.5 % (36.0-66.0); Hematocrit 24.7 % (42-50); Hemoglobin 7.2 gm/dl (12.5-18.0); Lymphocytes % 3.6 % (24.0-44.0); Mean Cell Volume 74.6 fl (78-100); Mean Corpuscular Hgb Concent. 29.1 g/dl (32-36); Mean Platelet Volume 8.6 fl (6-9.5); Monocyte (Absolute #) 1.02 (0.0-1.3); Monocytes % 12.1 % (0.0-12.0); Platelet Count 523 K/mm3 (150-450); Red Blood Count 3.31 M/mm3 (4.1-5.6); Red Cell Distribution Width 19.1 % (11.5-14.0); White Blood Count 8.4 K/mm3 (4.0-10.5)
[2018-02-13 20:08] LABS: Mean Corpuscular Hemoglobin 21.7 pg (26-32)
--- NOTE | 2018-02-13 20:08 | ERPHSYRPT ---
- History of Present Illness Time Seen by Provider: 02/13/18 19:59 Source: patient Exam Limitations: no limitations, other (patient with tracheostomy communicates with writing) Patient Subjective Stated Complaint: pt states he has been constipated for the last 5 days. states he had a very small, hard bm yesterday and 1 this afternoon. Triage Nursing Assessment: pt alert and oriented. answers questions approp by writing on notepad. pt back per wheelchair, transfers to stretcher with minimal assist, respirations nonlabored. chest tube capped to rt side. abd soft, nontender to light palpation. bowel sounds present- hypoactive. Physician History: This is a 57-year-old white male with history of lung cancer, throat cancer, hypercholesterolemia, high blood pressure, GERD, who has a tracheostomy and communicates with writing. He arrives with complaint of constipation for 5 days he states that he has only had a small bowel movement yesterday and today. He is not having abdominal pain no nausea no vomiting. He is having rectal pain. Past medical history includes lung cancer, hypercholesterolemia, high blood pressure, GERD, throat cancer, patient has a stoma. Patient has had a history of bowel obstruction in the past patient is receiving chemotherapy in the right lung he had last treatment one week ago. Past surgical history includes tracheostomy and colon resection. . Timing/Duration: day(s) (5 days) Severity: moderate Modifying Factors: Improves With: nothing Associated Symptoms: other (constipation), No nausea, No vomiting, No abdominal pain, No shortness of breath, No heartburn, No diaphoresis, No cough, No chills , No chest pain, No fever, No headaches, No loss of appetite, No malaise, No rash, No syncope, No seizure, No weakness Allergies/Adverse Reactions: No Known Drug Allergies Allergy (Verified 02/13/18 19:29) Home Medications: Rosuvastatin Calcium [Crestor] 10 mg DAILY 04/08/13 [History] Carvedilol 12.5 mg [Coreg 12.5 mg] 12.5 mg PO DAILY 06/19/17 [History] Pantoprazole Sodium [Protonix] 40 mg PO DAILY 06/19/17 [History] raNITIdine HCl [Ranitidine HCl] 150 mg PO DAILY 06/19/17 [History] Ferrous Sulfate 325 mg DAILY 12/21/17 [History] Hydrocodone/Acetaminophen [Hydrocodone-Acetamin 5-325 mg] 1 ea TID 12/21/17 [ History] Hx Tetanus, Diphtheria Vaccination/Date Given: Yes Hx Influenza Vaccination/Date Given: No Hx Pneumococcal Vaccination/Date Given: No Immunizations Up to Date: Yes - Review of Systems Constitutional: No Fever, No Chills Eyes: No Symptoms Ears, Nose, & Throat: No Symptoms Respiratory: No Cough, No Dyspnea Cardiac: No Chest Pain, No Edema, No Syncope Abdominal/Gastrointestinal: Constipation, No Abdominal Pain, No Nausea, No Vomiting, No Diarrhea, No Hematemesis, No Hematochezia, No Melena, No Dysphagia , No Appetite Changes Genitourinary Symptoms: No Dysuria Musculoskeletal: No Back Pain, No Neck Pain Skin: No Rash Neurological: No Dizziness, No Focal Weakness, No Sensory Changes Psychological: No Symptoms Endocrine: No Symptoms All Other Systems: Reviewed and Negative - Past Medical History Pertinent Past Medical History: Yes Neurological History: No Pertinent History ENT History: No Pertinent History Cardiac History: High Cholesterol, Hypertension Respiratory History: Lung Cancer, Other Endocrine Medical History: No Pertinent History Musculoskeletal History: No Pertinent History GI Medical History: GERD History: No Pertinent History Psycho-Social History: No Pertinent History Male Reproductive Disorders: No Pertinent History Other Medical History: throat CA. pt communicated with writing r/t stoma, lung ca rt lung currently recieving chemo, last tretment last monday. hx of bowel obst 4 mos ago - Past Surgical History Past Surgical History: Yes Neuro Surgical History: No Pertinent History Cardiac: No Pertinent History Respiratory: Tracheostomy Gastrointestinal: Colon Resection Genitourinary: No Pertinent History Musculoskeletal: No Pertinent History Male Surgical History: No Pertinent History Other Surgical History: has - Social History Smoking Status: Former smoker Exposure to second hand smoke: No Alcohol Use: None Drug Use: none Patient Lives Alone: No Significant Family History: no pertinent family hx - Nursing Vital Signs Nursing Vital Signs: Initial Vital Signs Temperature 99.3 F 02/13/18 19:13 Pulse Rate 104 H 02/13/18 19:13 Respiratory Rate 18 02/13/18 19:13 Blood Pressure 120/80 02/13/18 19:13 O2 Sat by Pulse Oximetry 100 02/13/18 19:13 Pain Scale Pain Intensity 3 - Physical Exam General Appearance: no apparent distress, alert Eye Exam: PERRL/EOMI, eyes nml inspection Ears, Nose, Throat Exam: normal ENT inspection, TMs normal, pharynx normal, moist mucous membranes Neck Exam: non-tender, supple, full range of motion, other (mass on left side of theneck, tracheostomy in place) Respiratory Exam: normal breath sounds, lungs clear, No respiratory distress Cardiovascular Exam: regular rate/rhythm, normal heart sounds, normal peripheral pulses Gastrointestinal/Abdomen Exam: soft, normal bowel sounds, No tenderness, No distention, No mass, No guarding, No pulsatile mass Male Genitalia Exam: other (normal sphincter tone, no stool palpated.) Back Exam: normal inspection, normal range of motion, No CVA tenderness, No vertebral tenderness Extremity Exam: normal inspection, normal range of motion, pelvis stable Neurologic Exam: alert, oriented x 3, cooperative, 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, normal mood/affect, nml cerebellar function, nml station & gait, sensation nml, No motor deficits Skin Exam: other (mass on left side of neck) SpO2 Interpretation: normal (100%) SpO2: 100 Oxygen Delivery: Room Air - Course Nursing assessment & vital signs reviewed: Yes - Radiology Exams Abdomen X-ray Interpretation: Interpreted by me (abdominal series includiding chest, chest: Large right-sided effusion comprising most of lung volume, abdominal x- rays large dilated loops of bowel, predominantly left side of abdomen) - CT Exams Abdomen/Pelvis CT Interpretation: Tele-radiologist Report (CT abdomen and pelvis: Impression increased fecal retention in the residual rectosigmoid colon. Very large complex righ with moderate pleural thickening. The pleural drainage tube is within the fluid collection.) Ordered Tests: Active Orders 24 hr Category Date Time Status Enema STAT Care 02/13/18 22:04 Active IV Insertion STAT Care 02/13/18 19:37 Active ABDOMEN AND PELVIS W CONTRAST [CT] Stat Exams 02/13/18 20:35 Taken OBSTR/ACUTE ABDOMEN SERIES Stat Exams 02/13/18 19:37 Taken AMYLASE Stat Lab 02/13/18 19:50 Completed CBC W DIFF Stat Lab 02/13/18 19:50 Completed CMP Stat Lab 02/13/18 19:50 Completed LIPASE Stat Lab 02/13/18 19:50 Completed Occult Blood-Screening (Stool) [Occult Blood-Screening] Lab 02/13/18 21:20 Completed Stat Lab/Rad Data: Laboratory Result Diagrams 02/13/18 19:50 02/13/18 19:50 Laboratory Results 02/13/18 02/13/18 02/13/18 Range/Units 21:20 19:50 19:50 WBC 8.4 (4.0-10.5) K/mm3 RBC 3.31 L (4.1-5.6) M/mm3 Hgb 7.2 L (12.5-18.0) gm/dl Hct 24.7 L (42-50) % MCV 74.6 L (78-100) fl MCH 21.7 L (26-32) pg MCHC 29.1 L (32-36) g/dl RDW 19.1 H (11.5-14.0) % Plt Count 523 H (150-450) K/mm3 MPV 8.6 (6-9.5) fl Gran % 83.5 H (36.0-66.0) % Eos # (Auto) 0.05 (0-0.5) Absolute Lymphs (auto) 0.30 L (1.0-4.6) Absolute Monos (auto) 1.02 (0.0-1.3) Lymphocytes % 3.6 L (24.0-44.0) % Monocytes % 12.1 H (0.0-12.0) % Eosinophils % 0.6 (0.00-5.0) % Basophils % 0.2 (0.0-0.4) % Absolute Granulocytes 7.04 H (1.4-6.9) Basophils # 0.02 (0-0.4) Sodium 129 L (137-145) mmol/L Potassium 4.7 (3.5-5.1) mmol/L Chloride 91 L (98-107) mmol/L Carbon Dioxide 26 (22-30) mmol/L Anion Gap 16.7 H (5-15) MEQ/L BUN 15 (9-20) mg/dL Creatinine 0.85 (0.66-1.25) mg/dL Estimated GFR > 60.0 ML/MIN Glucose 126 H (74-106) mg/dL Calcium 11.9 H (8.4-10.2) mg/dL Total Bilirubin 0.40 (0.2-1.3) mg/dL AST 44 (17-59) U/L ALT 46 (0-50) U/L Alkaline Phosphatase 181 H (38-126) U/L Serum Total Protein 7.7 (6.3-8.2) g/dL Albumin 3.8 (3.5-5.0) g/dL Amylase 42 (30-110) U/L Lipase 16 L (23-300) U/L Stool Occult Bld Scrn NEGATIVE Slides for Path Review YES - Progress Progress: improved Progress Note: 02/13/18 22:54 57-year-old white male with history of cancer of the lung, throat cancer, who has a stoma, and communicates with writing arrives with complaint of constipation and rectal pain symptoms for 5 days. Patient with distended loops of bowel on the left side of his abdomen on acute abdominal series no palpable stool on rectal exam CT of the abdomen was obtained remarkable for increased fecal retention in the residual rectosigmoid colon subtotal colectomy. There is a very large complex right pleural fluid collection with moderate pleural thickening on the right there is a pleural drainage tube within the fluid collection Patient with a white count of 8.4 hemoglobin 7.2 (patient was 7.7 back in June of this year and patient is on iron) Patient's hematocrit 24.7 platelets are 523 vitals are stable occult blood is negative for the stool chemistry sodium 129 potassium 49 chloride 91 BUN 15 creatinine 0.85 glucose 126 Patient drains his pleural fluid every other day he is due to do this tomorrow he is not short of breath and has no discomfort with his breathing. I've discussed case with Dr. Smith Will give patient a fleets soapsuds enema anticipate discharge. Patient will need to follow-up with Dr. Smith/his oncologist. He did get chemotherapy one week ago. We'll consider home on Dulcolax suppositories if the patient does not have this. Patient is to continue draining pleural fluid as outlined by his oncologist. Impression constipation. Rectal pain. Anemia. History of lung cancer on chemotherapy. History of throat cancer. . . 02/13/18 23:17 Patient with good results with fleets enema patient feeling much better will discharge. - Departure Time of Disposition: 23:17 Departure Disposition: Home Clinical Impression: Rectal pain, Pleural effusion, History of lung cancer, History of throat cancer Constipation Qualifiers: Constipation type: unspecified constipation type Qualified Code(s): K59.00 - Constipation, unspecified Anemia Qualifiers: Anemia type: unspecified type Qualified Code(s): D64.9 - Anemia, unspecified Condition: Fair Critical Care Time: No Referrals: JANA SMITH MD [Primary Care Provider] - Additional Instructions: Return home. Plenty of fluids. Continue to drain your right lung fluid as outlined by your oncologist/Dr. Smith. Follow-up with your oncologist/Dr. Smith. Dulcolax suppositories (OTC) one rectally as needed for no stool in 48 hours. Return for acute distress or for severe symptoms.
[2018-02-13 20:11] LABS: ALBUMIN 3.8 g/dL (3.5-5.0); ALKALINE PHOSPHATASE 181 U/L (38-126); AMYLASE 42 U/L (30-110); ANION GAP 16.7 MEQ/L (5-15); BLOOD UREA NITROGEN 15 mg/dL (9-20); CHLORIDE 91 mmol/L (98-107); Calcium 11.9 mg/dL (8.4-10.2); Carbon Dioxide 26 mmol/L (22-30); Creatinine 1 0.85 mg/dL (0.66-1.25); Glucose 126 mg/dL (74-106); LIPASE 16 U/L (23-300); Potassium 4.7 mmol/L (3.5-5.1); SGOT/AST 44 U/L (17-59); SGPT/ALT 46 U/L (0-50); SODIUM 129 mmol/L (137-145); Total Protein 7.7 g/dL (6.3-8.2)
[2018-02-13 21:09] LABS: Slide Review 1 YES
[2018-02-13 22:01] VITALS: PULSE 98
[2018-02-13 23:30] VITALS: BP 116/75; O2SAT 99
--- NOTE | 2018-02-14 08:51 | XRAY ---
Indication: Constipation. Multiple contiguous axial images obtained through the abdomen and pelvis using 80 cc Isovue 370 contrast. Comparison: June 23, 2017. Lung bases demonstrates incompletely visualized large right effusion with tiny air bubbles, pleural thickening, and a chest tube in situ. Left lung bases clear. Heart is not enlarged. Noncontrasted stomach and bowel loops appear nonobstructed. Right lower quadrant bowel anastomosis and sigmoid anastomosis intact. No free fluid/air. New large fecal debris in the rectal vault. Gallbladder again distended without gallstones or biliary distention. Stable left renal cysts. Remaining liver, pancreas, spleen, adrenal glands, kidneys, ureters, and bladder appear unremarkable. There remains moderate aortoiliac calcifications. No AAA or pathologic retroperitoneal lymphadenopathy. Osseous structures intact again with bilateral L5 spondylolysis and minimal grade 1 spondylolisthesis. Also again partially visualized old proximal right femur fracture with orthopedic hardware. Impression: 1. New rectal fecal impaction. 2. Stable distended gallbladder without gallstones, left renal cysts, and L5 spondylolysis with grade 1 spondylolisthesis. 3. New large right lung base effusion with pleural thickening and chest tube in situ. Comment: Preliminary interpretation was made by [facility]. No critical discrepancy. CT DI 10.72
--- NOTE | 2018-02-14 08:53 | XRAY ---
Indication: Constipation. Comparison: Chest exam December 21, 2017. 2 views of the abdomen demonstrates nonspecific nonobstructed bowel gas pattern with rectal fecal debris. No free air. Multiple bilateral pelvic phleboliths. Solid organs unremarkable. Osseous structures intact with mild multilevel degenerative spondylosis. Single PA chest again demonstrates large right effusion minimally improved with new chest tube tip near the apex. Remaining heart and left lung unremarkable. Bony thorax intact again with mild degenerative changes. Stable surgical clips at base of the neck. Impression: 1. Nonacute nonobstructed abdomen. 2. Minimal improvement right effusion with new chest tube in situ.
== END 2018-02-13 23:30 | disposition home or self-care (01) ==
LOC: ED 18:23
DX: K62.89 Other specified diseases of anus and rectum (principal); D64.9 Anemia, unspecified; Z85.118 Personal history of other malignant neoplasm of bronchus and lung; Z85.819 Personal history of malignant neoplasm of unspecified site of lip, oral cavity, and pharynx; J90 Pleural effusion, not elsewhere classified; K59.00 Constipation, unspecified; E78.00 Pure hypercholesterolemia, unspecified; K21.9 Gastro-esophageal reflux disease without esophagitis; I10 Essential (primary) hypertension; Z79.899 Other long term (current) drug therapy; Z90.49 Acquired absence of other specified parts of digestive tract
CPT/HCPCS: 36000; 36415; 74022; 74177; 80053; 82150; 82270; 83690; 85025; 99284

== ENCOUNTER 2018-02-20 20:58 | Emergency (ER) | payer MEDICAID, OTHER ==
--- NOTE | 2018-02-20 21:16 | ERPHSYRPT ---
- History of Present Illness Time Seen by Provider: 02/20/18 21:15 Source: patient, family Exam Limitations: clinical condition Physician History: 57 y/o white male with primary lung cancer with mets to left cheek/lymph nodes on chemotx. his most recent chemotx was 2 weeks ago. pt has been vomiting and weak. pt has a permanent right chest thoracostomy tube he drains off recurrent pleural effusions. he drained today. he does complain right chest wall pain. denies anterior cp and denies abd pain. pt denies diarrhea. pt has chronic anemia with hemoglobins in 7 to 8 range Timing/Duration: today Severity: mild (mild to mod) Associated Symptoms: nausea, vomiting, shortness of breath (chronic), loss of appetite, weakness, No abdominal pain Allergies/Adverse Reactions: No Known Drug Allergies Allergy (Verified 02/13/18 19:29) Home Medications: Rosuvastatin Calcium [Crestor] 10 mg DAILY 04/08/13 [History] Carvedilol 12.5 mg [Coreg 12.5 mg] 12.5 mg PO DAILY 06/19/17 [History] Pantoprazole Sodium [Protonix] 40 mg PO DAILY 06/19/17 [History] raNITIdine HCl [Ranitidine HCl] 150 mg PO DAILY 06/19/17 [History] Ferrous Sulfate 325 mg DAILY 12/21/17 [History] Hydrocodone/Acetaminophen [Hydrocodone-Acetamin 5-325 mg] 1 ea TID 12/21/17 [ History] Hx Tetanus, Diphtheria Vaccination/Date Given: Yes Hx Influenza Vaccination/Date Given: No Hx Pneumococcal Vaccination/Date Given: No - Review of Systems Constitutional: Weakness Eyes: No Symptoms Ears, Nose, & Throat: No Symptoms Respiratory: No Symptoms, Dyspnea (chronic), No Cough, No Stridor, No Wheezing Cardiac: No Chest Pain, No Palpitations, No Syncope Abdominal/Gastrointestinal: Nausea, Vomiting, Appetite Changes, No Abdominal Pain, No Diarrhea Genitourinary Symptoms: No Symptoms Musculoskeletal: No Symptoms Skin: No Symptoms Neurological: No Symptoms Psychological: No Symptoms Endocrine: No Symptoms Hematologic/Lymphatic: No Symptoms Immunological/Allergic: No Symptoms All Other Systems: Reviewed and Negative - Past Medical History Pertinent Past Medical History: Yes Neurological History: No Pertinent History ENT History: No Pertinent History Cardiac History: High Cholesterol, Hypertension Respiratory History: Lung Cancer, Other Endocrine Medical History: No Pertinent History Musculoskeletal History: No Pertinent History GI Medical History: GERD History: No Pertinent History Psycho-Social History: No Pertinent History Male Reproductive Disorders: No Pertinent History Other Medical History: throat CA. pt communicated with writing r/t stoma, lung ca rt lung currently recieving chemo, last tretment last monday. hx of bowel obst 4 mos ago - Past Surgical History Past Surgical History: Yes Neuro Surgical History: No Pertinent History Cardiac: No Pertinent History Respiratory: Tracheostomy Gastrointestinal: Colon Resection Genitourinary: No Pertinent History Musculoskeletal: No Pertinent History Male Surgical History: No Pertinent History Other Surgical History: has - Social History Smoking Status: Former smoker Exposure to second hand smoke: No Alcohol Use: None Drug Use: none Patient Lives Alone: No Significant Family History: no pertinent family hx - Nursing Vital Signs Nursing Vital Signs: Initial Vital Signs Temperature 98.6 F 02/20/18 21:08 Pulse Rate 72 02/20/18 21:08 Respiratory Rate 16 02/20/18 21:08 Blood Pressure 112/78 02/20/18 21:08 O2 Sat by Pulse Oximetry 99 02/20/18 21:08 Pain Scale Pain Intensity 5 - Physical Exam General Appearance: mild distress, alert, anxiety Eye Exam: PERRL/EOMI Ears, Nose, Throat Exam: normal ENT inspection, dry mucous membranes Neck Exam: non-tender, supple, full range of motion, lymphadenopathy (left side) Respiratory Exam: normal breath sounds, lungs clear, airway intact, No respiratory distress, No accessory muscle use, No rhonchi, No wheezing, No stridor Cardiovascular Exam: regular rate/rhythm, normal heart sounds, normal peripheral pulses Gastrointestinal/Abdomen Exam: soft, normal bowel sounds, No tenderness, No guarding, No rebound Rectal Exam: not done Back Exam: normal inspection, normal range of motion, No CVA tenderness, No vertebral tenderness Extremity Exam: normal inspection, normal range of motion, pelvis stable Neurologic Exam: alert, oriented x 3, cooperative, marketing lead II-XII nml as tested Skin Exam: normal color, warm, dry Lymphatic Exam: adenopathy (left cervical) SpO2 Interpretation: normal Oxygen Delivery: Room Air - Course Nursing assessment & vital signs reviewed: Yes Ordered Tests: Active Orders 24 hr Category Date Time Status Clean Catch Urine Specimen STAT Care 02/20/18 21:40 Active IV Insertion STAT Care 02/20/18 21:40 Active AMYLASE Stat Lab 02/20/18 22:16 Completed CBC W DIFF Stat Lab 02/20/18 22:16 Completed CMP Stat Lab 02/20/18 22:16 Completed LIPASE Stat Lab 02/20/18 22:16 Completed UA W/RFX UR CULTURE Stat Lab 02/20/18 02:15 Completed Medication Summary Discontinued Medications Generic Name Dose Route Start Last Admin Trade Name Reid PRN Reason Stop Dose Admin Sodium Chloride 1,000 mls @ 999 mls/hr 02/20/18 21:40 02/21/18 01:48 Sodium Chloride 0.9% 1000 Ml IV 02/20/18 22:40 Infused .Q1H1M STA Infusion Sodium Chloride Confirm 02/20/18 22:17 Sodium Chloride 0.9% 1000 Ml Administered 02/20/18 22:18 Dose 1,000 mls @ ud .ROUTE .STK-MED ONE Sodium Chloride 1,000 mls @ 999 mls/hr 02/20/18 23:41 02/20/18 23:52 Sodium Chloride 0.9% 1000 Ml IV 02/21/18 00:41 Infused .Q1H1M STA Infusion Sodium Chloride Confirm 02/20/18 23:44 Sodium Chloride 0.9% 1000 Ml Administered 02/20/18 23:45 Dose 1,000 mls @ ud .ROUTE .STK-MED ONE Morphine Sulfate 6 mg 02/20/18 21:41 02/20/18 22:23 Morphine Sulfate 2 Mg Inj IV 02/20/18 21:42 6 mg STAT ONE Administration Morphine Sulfate Confirm 02/20/18 22:18 Morphine Sulfate 2 Mg Inj Administered 02/20/18 22:19 Dose 6 mg .ROUTE .STK-MED ONE Morphine Sulfate 4 mg 02/21/18 02:23 02/21/18 02:29 Morphine Sulfate 4 Mg Inj IV 02/21/18 02:24 4 mg STAT ONE Administration Morphine Sulfate Confirm 02/21/18 02:27 Morphine Sulfate 4 Mg Inj Administered 02/21/18 02:28 Dose 4 mg .ROUTE .STK-MED ONE Ondansetron HCl 4 mg 02/20/18 21:40 02/20/18 22:23 Zofran 4 Mg/2 Ml Vial IV 02/20/18 21:41 4 mg STAT ONE Administration Ondansetron HCl Confirm 02/20/18 22:17 Zofran 4 Mg/2 Ml Vial Administered 02/20/18 22:18 Dose 4 mg .ROUTE .STK-MED ONE Lab/Rad Data: Laboratory Result Diagrams 02/20/18 22:16 02/20/18 22:16 Laboratory Results 02/20/18 02/20/18 02/20/18 Range/Units 22:16 22:16 02:15 WBC 8.9 (4.0-10.5) K/mm3 RBC 4.06 L (4.1-5.6) M/mm3 Hgb 8.6 L (12.5-18.0) gm/dl Hct 28.7 L (42-50) % MCV 70.7 L (78-100) fl MCH 21.1 L (26-32) pg MCHC 30.0 L (32-36) g/dl RDW 19.5 H (11.5-14.0) % Plt Count 625 H (150-450) K/mm3 MPV 8.8 (6-9.5) fl Gran % 86.5 H (36.0-66.0) % Eos # (Auto) 0.01 (0-0.5) Absolute Lymphs (auto) 0.22 L (1.0-4.6) Absolute Monos (auto) 0.96 (0.0-1.3) Lymphocytes % 2.5 L (24.0-44.0) % Monocytes % 10.8 (0.0-12.0) % Eosinophils % 0.1 (0.00-5.0) % Basophils % 0.1 (0.0-0.4) % Absolute Granulocytes 7.67 H (1.4-6.9) Basophils # 0.01 (0-0.4) Sodium 128 L (137-145) mmol/L Potassium 5.3 H (3.5-5.1) mmol/L Chloride 89 L (98-107) mmol/L Carbon Dioxide 24 (22-30) mmol/L Anion Gap 19.8 H (5-15) MEQ/L BUN 20 (9-20) mg/dL Creatinine 1.03 (0.66-1.25) mg/dL Estimated GFR > 60.0 ML/MIN Glucose 121 H (74-106) mg/dL Calcium 13.2 H* (8.4-10.2) mg/dL Total Bilirubin 0.60 (0.2-1.3) mg/dL AST 47 (17-59) U/L ALT 56 H (0-50) U/L Alkaline Phosphatase 204 H (38-126) U/L Serum Total Protein 8.5 H (6.3-8.2) g/dL Albumin 4.0 (3.5-5.0) g/dL Amylase 58 (30-110) U/L Lipase 41 (23-300) U/L Urine Color YELLOW (YELLOW) Urine Appearance SLIGHTLY CLOUDY (CLEAR) Urine pH 5.0 (5-6) Ur Specific [place] 1.017 (1.005-1.025) Urine Protein 30 (Negative) Urine Ketones NEGATIVE (NEGATIVE) Urine Blood NEGATIVE (0-5) Ranjit/ul Urine Nitrite NEGATIVE (NEGATIVE) Urine Bilirubin NEGATIVE (NEGATIVE) Urine Urobilinogen NORMAL (0-1) mg/dL Ur Leukocyte Esterase NEGATIVE (NEGATIVE) Urine WBC (Auto) 0-2 (0-5) /HPF Urine RBC (Auto) 0-2 (0-2) /HPF U Hyaline Cast (Auto) 11-25 (0-2) /LPF U Epithel Cells (Auto) NONE (FEW) /HPF Urine Mucus (Auto) SLIGHT (NEGATIVE) /HPF Urine Culture Reflexed NO (NO) Urine Glucose NEGATIVE (NEGATIVE) mg/dL Slides for Path Review YES - Progress Progress: improved, pain not gone completely, re-examined Progress Note: 02/21/18 02:25 pt had refused straight cath. he just gave a urine specimen. right lat chest wall pain present now a 08/24. 02/21/18 02:40 pt feeling better. pt to be discharged to home. Counseled pt/family regarding: lab results, diagnosis, need for follow-up - Departure Time of Disposition: 02:41 Departure Disposition: Home Clinical Impression: Vomiting, Weakness, Lung cancer, History of chemotherapy Condition: Stable Critical Care Time: No Referrals: JANA SMITH MD [Primary Care Provider] - Additional Instructions: drink plenty of fluids. follow up with oncologist later today for further management.
[2018-02-20] MEDS ORDERED: Zofran 4 MG/2 ML VIAL IV ONE (21:40)
[2018-02-20] MEDS ORDERED: Sodium Chloride 0.9% 1000 ML 1,000 ML IV STA ×2 (21:40→23:41)
[2018-02-20] MEDS ORDERED: MORPHINE SULFATE 2 MG INJ IV ONE (21:41)
[2018-02-20] MEDS ORDERED: Zofran 4 MG/2 ML VIAL ONE (22:17)
[2018-02-20] MEDS ORDERED: Sodium Chloride 0.9% 1000 ML 1,000 ML ONE ×2 (22:17→23:44)
[2018-02-20] MEDS ORDERED: MORPHINE SULFATE 2 MG INJ ONE (22:18)
[2018-02-20 22:19] LABS: BASOPHIL % 0.1 % (0.0-0.4); Basophil (Absolute #) 0.01 (0-0.4); Eosinophil % 0.1 % (0.00-5.0); Eosinophil (Absolute #) 0.01 (0-0.5); Granulocyte Absolute (ANC) 7.67 (1.4-6.9); Granulocytes % 86.5 % (36.0-66.0); Hematocrit 28.7 % (42-50); Hemoglobin 8.6 gm/dl (12.5-18.0); Lymphocyte (Absolute #) 0.22 (1.0-4.6); Lymphocytes % 2.5 % (24.0-44.0); Mean Cell Volume 70.7 fl (78-100); Mean Platelet Volume 8.8 fl (6-9.5); Monocyte (Absolute #) 0.96 (0.0-1.3); Monocytes % 10.8 % (0.0-12.0); Platelet Count 625 K/mm3 (150-450); Red Blood Count 4.06 M/mm3 (4.1-5.6); Red Cell Distribution Width 19.5 % (11.5-14.0); White Blood Count 8.9 K/mm3 (4.0-10.5)
[2018-02-20 22:22] LABS: Mean Corpuscular Hemoglobin 21.1 pg (26-32)
[2018-02-20 22:35] LABS: ALKALINE PHOSPHATASE 204 U/L (38-126); AMYLASE 58 U/L (30-110); ANION GAP 19.8 MEQ/L (5-15); BLOOD UREA NITROGEN 20 mg/dL (9-20); CHLORIDE 89 mmol/L (98-107); Carbon Dioxide 24 mmol/L (22-30); Creatinine 1 1.03 mg/dL (0.66-1.25); Glucose 121 mg/dL (74-106); LIPASE 41 U/L (23-300); Potassium 5.3 mmol/L (3.5-5.1); SGOT/AST 47 U/L (17-59); SGPT/ALT 56 U/L (0-50); SODIUM 128 mmol/L (137-145); Total Protein 8.5 g/dL (6.3-8.2)
[2018-02-20 22:38] LABS: Calcium 13.2 mg/dL (8.4-10.2)
[2018-02-20 22:56] LABS: Slide Review 1 YES
[2018-02-21] MEDS ORDERED: MORPHINE SULFATE 4 MG INJ IV ONE (02:23)
[2018-02-21 02:26] LABS: Appearance SLIGHTLY CLOUDY (CLEAR); Glucose NEGATIVE (NEGATIVE); Ketones NEGATIVE (NEGATIVE); Leukocyte Esterase NEGATIVE (NEGATIVE); Nitrite NEGATIVE (NEGATIVE); Protein,Urine Dip 30 (Negative); Specific Gravity 1.017 (1.005-1.025); Urobilinogen NORMAL mg/dL (0-1)
[2018-02-21 02:27] LABS: Bilirubin NEGATIVE (NEGATIVE); Blood NEGATIVE Ery/ul (0-5)
[2018-02-21] MEDS ORDERED: MORPHINE SULFATE 4 MG INJ ONE (02:27)
[2018-02-21 03:28] VITALS: BP 110/66; PULSE 74; O2SAT 98
== END 2018-02-21 03:20 | disposition home or self-care (01) ==
LOC: ED 20:58
DX: R11.2 Nausea with vomiting, unspecified (principal); R53.1 Weakness; R07.89 Other chest pain; C34.90 Malignant neoplasm of unspecified part of unspecified bronchus or lung; C77.9 Secondary and unspecified malignant neoplasm of lymph node, unspecified; Z79.899 Other long term (current) drug therapy
CPT/HCPCS: 36000; 36415; 80053; 81001; 82150; 83690; 85025; 96360; 96361; 96374; 96375; 96376; 99284; J2270; J2405

== ENCOUNTER 2018-02-25 09:03 | Emergency (ER) | payer MEDICAID ==
[2018-02-25] MEDS ORDERED: Sodium Chloride 0.9% 1000 ML 1,000 ML ONE (09:42)
--- NOTE | 2018-02-25 09:42 | ERPHSYRPT ---
- History of Present Illness Time Seen by Provider: 02/25/18 09:35 Source: patient Exam Limitations: clinical condition Patient Subjective Stated Complaint: pt here for vomiting yesterday x4 none today and chroinc abd pain. pt states he feels bloated, had bm 4 days ago Triage Nursing Assessment: pt alert, resp easy, has trach in place, and communicates by writing or mouthing words, abd distended but soft, no edema Physician History: PATIENT WITH A HISTORY OF PRIMARY LUNG CARCINOMA WITH METASTATIC SPREAD TO HIS NECK AND LYMPH NODES, CHRONIC ANEMIA, PERMANENT RIGHT CHEST THORACOSTOMY TUBE FOR PLEURAL DRAINAGE AND TRACHEOSTOMY COMMUNICATES BY WRITING, COMPLAINS OF EMESIS X 4 EPISODES YESTERDAY ASSOCIATED WITH ABDOMINAL PAIN. Timing/Duration: yesterday Severity: mild Associated Symptoms: nausea, vomiting, abdominal pain, shortness of breath, cough Allergies/Adverse Reactions: No Known Drug Allergies Allergy (Verified 02/25/18 09:17) Home Medications: Rosuvastatin Calcium [Crestor] 10 mg DAILY 04/08/13 [History] Carvedilol 12.5 mg [Coreg 12.5 mg] 12.5 mg PO DAILY 06/19/17 [History] Pantoprazole Sodium [Protonix] 40 mg PO DAILY 06/19/17 [History] raNITIdine HCl [Ranitidine HCl] 150 mg PO DAILY 06/19/17 [History] Ferrous Sulfate 325 mg DAILY 12/21/17 [History] Hydrocodone/Acetaminophen [Hydrocodone-Acetamin 5-325 mg] 1 ea TID 12/21/17 [ History] Hx Tetanus, Diphtheria Vaccination/Date Given: No Hx Influenza Vaccination/Date Given: No Hx Pneumococcal Vaccination/Date Given: Yes Immunizations Up to Date: Yes - Review of Systems Constitutional: No Fever, No Chills Eyes: No Symptoms Ears, Nose, & Throat: No Symptoms Respiratory: Cough, Dyspnea Cardiac: No Symptoms, No Chest Pain, No Edema, No Syncope Abdominal/Gastrointestinal: Abdominal Pain, Nausea, Vomiting, No Diarrhea Genitourinary Symptoms: No Symptoms, No Dysuria Musculoskeletal: No Symptoms, No Back Pain, No Neck Pain Skin: No Rash Neurological: No Dizziness, No Focal Weakness, No Sensory Changes Psychological: No Symptoms Endocrine: No Symptoms All Other Systems: Reviewed and Negative - Past Medical History Pertinent Past Medical History: Yes Neurological History: No Pertinent History ENT History: No Pertinent History Cardiac History: High Cholesterol, Hypertension Respiratory History: Lung Cancer, Other Endocrine Medical History: No Pertinent History Musculoskeletal History: No Pertinent History GI Medical History: GERD History: No Pertinent History Psycho-Social History: No Pertinent History Male Reproductive Disorders: No Pertinent History Other Medical History: throat CA. pt communicated with writing r/t stoma, lung ca rt lung currently recieving chemo, last tretment last monday. hx of bowel obst 4 mos ago - Past Surgical History Past Surgical History: Yes Neuro Surgical History: No Pertinent History Cardiac: No Pertinent History Respiratory: Tracheostomy Gastrointestinal: Colon Resection Genitourinary: No Pertinent History Musculoskeletal: No Pertinent History Male Surgical History: No Pertinent History Other Surgical History: has - Social History Smoking Status: Former smoker Exposure to second hand smoke: No Alcohol Use: None Drug Use: none Patient Lives Alone: No Significant Family History: no pertinent family hx - Nursing Vital Signs Nursing Vital Signs: Initial Vital Signs Temperature 98.5 F 02/25/18 09:08 Pulse Rate 94 H 02/25/18 09:08 Respiratory Rate 18 02/25/18 09:08 Blood Pressure 124/88 02/25/18 09:08 O2 Sat by Pulse Oximetry 96 02/25/18 09:08 Pain Scale Pain Intensity 7 - Physical Exam General Appearance: no apparent distress, alert Eye Exam: PERRL/EOMI, eyes nml inspection Ears, Nose, Throat Exam: normal ENT inspection, TMs normal, pharynx normal, moist mucous membranes Neck Exam: normal inspection, non-tender, supple, full range of motion Respiratory Exam: diminished breath sounds (DECREASED RIGHT HEMITHORAX), No respiratory distress Cardiovascular Exam: regular rate/rhythm, normal heart sounds, normal peripheral pulses, tachycardia Gastrointestinal/Abdomen Exam: soft, normal bowel sounds, tenderness ( PERIUMBILICAL TENDERNESS), No mass Back Exam: normal inspection, normal range of motion, No CVA tenderness, No vertebral tenderness Extremity Exam: normal inspection, normal range of motion, pelvis stable Neurologic Exam: alert, oriented x 3, cooperative, normal mood/affect, nml cerebellar function, nml station & gait, sensation nml, No motor deficits Skin Exam: normal color, warm, dry, No rash Lymphatic Exam: No adenopathy SpO2: 96 Oxygen Delivery: Room Air - Course EKG Interpreted by Me: RATE, Sinus Rhythm (RATE 105), Non-specific ST Changes - Radiology Exams Chest X-ray Interpretation: Interpreted by me (MARKED RIGHT SIDED PLEURAL EFFUSION) - CT Exams Abdomen/Pelvis CT Interpretation: Tele-radiologist Report (INTERVAL DEVELOPMENT OF MARKED DILATATION OF PROXIMAL AND MID JEJUNAL LOOPS CONCERN FOR DEVELOPING SMALL BOWEL OBSTRUCTION, LOCULATED RIGHT PLERUAL EFFUSION) Ordered Tests: Active Orders 24 hr Category Date Time Status EKG-ER Only STAT Care 02/25/18 09:38 Active IV Insertion STAT Care 02/25/18 09:38 Active ABDOMEN AND PELVIS W CONTRAST [CT] Stat Exams 02/25/18 09:43 Taken CHEST 1 VIEW (PORTABLE) Stat Exams 02/25/18 09:38 Taken AMYLASE Stat Lab 02/25/18 09:54 Completed CBC W DIFF Stat Lab 02/25/18 09:54 Completed CMP Stat Lab 02/25/18 09:54 Completed CULTURE,URINE Stat Lab 02/25/18 13:03 Received LIPASE Stat Lab 02/25/18 09:54 Completed Lactic Acid Stat Lab 02/25/18 09:55 Completed Lactic Acid Stat Lab 02/25/18 12:00 Ordered MAGNESIUM Stat Lab 02/25/18 10:00 Completed PROTIME WITH INR Stat Lab 02/25/18 09:54 Completed TROPONIN Q3H Lab 02/25/18 09:54 Completed TROPONIN Q3H Lab 02/25/18 13:08 Completed TROPONIN Q3H Lab 02/25/18 15:59 Completed TROPONIN Q3H Lab 02/25/18 18:45 Ordered TROPONIN Q3H Lab 02/25/18 21:45 Ordered UA W/RFX UR CULTURE Stat Lab 02/25/18 13:03 Completed Medication Summary Generic Name Dose Route Start Last Admin Trade Name Freq PRN Reason Stop Dose Admin Sodium Chloride 1,000 mls @ 500 mls/hr 02/25/18 09:45 02/25/18 09:44 Sodium Chloride 0.9% 1000 Ml IV 03/27/18 09:44 500 mls/hr .Q2H PAKO Administration Discontinued Medications Generic Name Dose Route Start Last Admin Trade Name Freq PRN Reason Stop Dose Admin Levofloxacin/Dextrose 500 mg in 100 mls @ 100 mls/hr 02/25/18 13:33 02/25/18 15:15 Levofloxacin 500mg/100ml D5w IV 02/25/18 14:32 125 ml/hr STAT STA 125 mls/hr Administration Levofloxacin/Dextrose Confirm 11/11/18 15:13 Levofloxacin 500mg/100ml D5w Administered 02/25/18 15:14 Dose 500 mg in 100 mls @ ud IV .STK-MED ONE Morphine Sulfate 4 mg 02/25/18 10:03 02/25/18 10:14 Morphine Sulfate 4 Mg Inj IV 02/25/18 10:04 4 mg STAT ONE Administration Morphine Sulfate Confirm 02/25/18 10:12 Morphine Sulfate 4 Mg Inj Administered 02/25/18 10:13 Dose 4 mg .ROUTE .STK-MED ONE Ondansetron HCl 4 mg 02/25/18 10:03 02/25/18 10:13 Zofran 4 Mg/2 Ml Vial IV 02/25/18 10:04 4 mg STAT ONE Administration Ondansetron HCl Confirm 02/25/18 10:12 Zofran 4 Mg/2 Ml Vial Administered 02/25/18 10:13 Dose 4 mg .ROUTE .STK-MED ONE Pantoprazole Sodium 40 mg 02/25/18 16:50 02/25/18 16:56 Protonix 40 Mg Iv IV 02/25/18 16:51 40 mg STAT ONE Administration Pantoprazole Sodium Confirm 02/25/18 16:52 Protonix 40 Mg Iv Administered 02/25/18 16:53 Dose 40 mg IV .STK-MED ONE Lab/Rad Data: Laboratory Result Diagrams 02/25/18 09:54 02/25/18 09:54 Laboratory Results 02/25/18 02/25/18 02/25/18 Range/Units 15:59 13:08 13:03 WBC (4.0-10.5) K/mm3 RBC (4.1-5.6) M/mm3 Hgb (12.5-18.0) gm/dl Hct (42-50) % MCV (78-100) fl MCH (26-32) pg MCHC (32-36) g/dl RDW (11.5-14.0) % Plt Count (150-450) K/mm3 MPV (6-9.5) fl Gran % (36.0-66.0) % Eos # (Auto) (0-0.5) Absolute Lymphs (auto) (1.0-4.6) Absolute Monos (auto) (0.0-1.3) Lymphocytes % (24.0-44.0) % Monocytes % (0.0-12.0) % Eosinophils % (0.00-5.0) % Basophils % (0.0-0.4) % Absolute Granulocytes (1.4-6.9) Basophils # (0-0.4) PT (8.83-12.87) SECONDS INR (0.8-3.0) Sodium (137-145) mmol/L Potassium (3.5-5.1) mmol/L Chloride (98-107) mmol/L Carbon Dioxide (22-30) mmol/L Anion Gap (5-15) MEQ/L BUN (9-20) mg/dL Creatinine (0.66-1.25) mg/dL Estimated GFR ML/MIN Glucose (74-106) mg/dL Lactic Acid (0.4-2.0) Calcium (8.4-10.2) mg/dL Magnesium (1.6-2.3) mg/dL Total Bilirubin (0.2-1.3) mg/dL AST (17-59) U/L ALT (0-50) U/L Alkaline Phosphatase (38-126) U/L Troponin I < 0.012 < 0.012 (0.000-0.034) ng/mL Serum Total Protein (6.3-8.2) g/dL Albumin (3.5-5.0) g/dL Amylase (30-110) U/L Lipase (23-300) U/L Urine Color YELLOW (YELLOW) Urine Appearance SLIGHTLY CLOUDY (CLEAR) Urine pH 5.0 (5-6) Ur Specific [place] 1.032 (1.005-1.025) Urine Protein NEGATIVE (Negative) Urine Ketones SMALL (NEGATIVE) Urine Blood NEGATIVE (0-5) Ranjit/ul Urine Nitrite NEGATIVE (NEGATIVE) Urine Bilirubin NEGATIVE (NEGATIVE) Urine Urobilinogen NEGATIVE (0-1) mg/dL Ur Leukocyte Esterase NEGATIVE (NEGATIVE) Urine WBC (Auto) 6-10 (0-5) /HPF Urine RBC (Auto) NONE (0-2) /HPF U Hyaline Cast (Auto) 3-5 (0-2) /LPF U Epithel Cells (Auto) NONE (FEW) /HPF Urine Bacteria (Auto) RARE (NEGATIVE) /HPF Granular Casts (Auto) 2-5 (NEGATIVE) /LPF Urine Mucus (Auto) SLIGHT (NEGATIVE) /HPF Urine Culture Reflexed YES (NO) Urine Glucose NEGATIVE (NEGATIVE) mg/dL Slides for Path Review 02/25/18 02/25/18 02/25/18 Range/Units 10:00 09:55 09:54 WBC 6.2 (4.0-10.5) K/mm3 RBC 3.90 L (4.1-5.6) M/mm3 Hgb 8.1 L (12.5-18.0) gm/dl Hct 27.3 L (42-50) % MCV 70.0 L (78-100) fl MCH 20.7 L (26-32) pg MCHC 29.7 L (32-36) g/dl RDW 19.9 H (11.5-14.0) % Plt Count 616 H (150-450) K/mm3 MPV 8.1 (6-9.5) fl Gran % 82.1 H (36.0-66.0) % Eos # (Auto) 0.02 (0-0.5) Absolute Lymphs (auto) 0.29 L (1.0-4.6) Absolute Monos (auto) 0.78 (0.0-1.3) Lymphocytes % 4.7 L (24.0-44.0) % Monocytes % 12.7 H (0.0-12.0) % Eosinophils % 0.3 (0.00-5.0) % Basophils % 0.2 (0.0-0.4) % Absolute Granulocytes 5.05 (1.4-6.9) Basophils # 0.01 (0-0.4) PT (8.83-12.87) SECONDS INR (0.8-3.0) Sodium (137-145) mmol/L Potassium (3.5-5.1) mmol/L Chloride (98-107) mmol/L Carbon Dioxide (22-30) mmol/L Anion Gap (5-15) MEQ/L BUN (9-20) mg/dL Creatinine (0.66-1.25) mg/dL Estimated GFR ML/MIN Glucose (74-106) mg/dL Lactic Acid 1.9 (0.4-2.0) Calcium (8.4-10.2) mg/dL Magnesium 2.3 (1.6-2.3) mg/dL Total Bilirubin (0.2-1.3) mg/dL AST (17-59) U/L ALT (0-50) U/L Alkaline Phosphatase (38-126) U/L Troponin I (0.000-0.034) ng/mL Serum Total Protein (6.3-8.2) g/dL Albumin (3.5-5.0) g/dL Amylase (30-110) U/L Lipase (23-300) U/L Urine Color (YELLOW) Urine Appearance (CLEAR) Urine pH (5-6) Ur Specific [place] (1.005-1.025) Urine Protein (Negative) Urine Ketones (NEGATIVE) Urine Blood (0-5) Ranjit/ul Urine Nitrite (NEGATIVE) Urine Bilirubin (NEGATIVE) Urine Urobilinogen (0-1) mg/dL Ur Leukocyte Esterase (NEGATIVE) Urine WBC (Auto) (0-5) /HPF Urine RBC (Auto) (0-2) /HPF U Hyaline Cast (Auto) (0-2) /LPF U Epithel Cells (Auto) (FEW) /HPF Urine Bacteria (Auto) (NEGATIVE) /HPF Granular Casts (Auto) (NEGATIVE) /LPF Urine Mucus (Auto) (NEGATIVE) /HPF Urine Culture Reflexed (NO) Urine Glucose (NEGATIVE) mg/dL Slides for Path Review YES 02/25/18 02/25/18 02/25/18 Range/Units 09:54 09:54 09:54 WBC (4.0-10.5) K/mm3 RBC (4.1-5.6) M/mm3 Hgb (12.5-18.0) gm/dl Hct (42-50) % MCV (78-100) fl MCH (26-32) pg MCHC (32-36) g/dl RDW (11.5-14.0) % Plt Count (150-450) K/mm3 MPV (6-9.5) fl Gran % (36.0-66.0) % Eos # (Auto) (0-0.5) Absolute Lymphs (auto) (1.0-4.6) Absolute Monos (auto) (0.0-1.3) Lymphocytes % (24.0-44.0) % Monocytes % (0.0-12.0) % Eosinophils % (0.00-5.0) % Basophils % (0.0-0.4) % Absolute Granulocytes (1.4-6.9) Basophils # (0-0.4) PT 18.7 H (8.83-12.87) SECONDS INR 1.60 (0.8-3.0) Sodium 130 L (137-145) mmol/L Potassium 4.6 (3.5-5.1) mmol/L Chloride 92 L (98-107) mmol/L Carbon Dioxide 22 (22-30) mmol/L Anion Gap 20.5 H (5-15) MEQ/L BUN 22 H (9-20) mg/dL Creatinine 0.84 (0.66-1.25) mg/dL Estimated GFR > 60.0 ML/MIN Glucose 106 (74-106) mg/dL Lactic Acid (0.4-2.0) Calcium 11.7 H (8.4-10.2) mg/dL Magnesium (1.6-2.3) mg/dL Total Bilirubin 0.60 (0.2-1.3) mg/dL AST 30 (17-59) U/L ALT 25 (0-50) U/L Alkaline Phosphatase 145 H (38-126) U/L Troponin I < 0.012 (0.000-0.034) ng/mL Serum Total Protein 7.5 (6.3-8.2) g/dL Albumin 3.7 (3.5-5.0) g/dL Amylase 48 (30-110) U/L Lipase 29 (23-300) U/L Urine Color (YELLOW) Urine Appearance (CLEAR) Urine pH (5-6) Ur Specific [place] (1.005-1.025) Urine Protein (Negative) Urine Ketones (NEGATIVE) Urine Blood (0-5) Ranjit/ul Urine Nitrite (NEGATIVE) Urine Bilirubin (NEGATIVE) Urine Urobilinogen (0-1) mg/dL Ur Leukocyte Esterase (NEGATIVE) Urine WBC (Auto) (0-5) /HPF Urine RBC (Auto) (0-2) /HPF U Hyaline Cast (Auto) (0-2) /LPF U Epithel Cells (Auto) (FEW) /HPF Urine Bacteria (Auto) (NEGATIVE) /HPF Granular Casts (Auto) (NEGATIVE) /LPF Urine Mucus (Auto) (NEGATIVE) /HPF Urine Culture Reflexed (NO) Urine Glucose (NEGATIVE) mg/dL Slides for Path Review - Progress Progress Note: 02/25/18 12:11 IV NORMAL SALINE 500ML/HR, MORPHINE 4MG X2, AFTER 2 SETS OF BLOOD CULTURES LEVAQUIN 500MG IVPB FOR UTI 02/25/18 13:[address] Other (DISCUSSED WITH [facility] AT [address] ACCEPTS TRANSFER VIA [facility]) - Departure Time of Disposition: 17:23 Departure Disposition: Transfer Clinical Impression: SMALL BOWEL OBSTRUCTION, PULMONARY CARCINOMA WITH PLEURAL EFFUSIO Condition: Stable Critical Care Time: No Referrals: JANA SMITH MD [Primary Care Provider] -
[2018-02-25] MEDS ORDERED: Sodium Chloride 0.9% 1000 ML 1,000 ML IV SCH (09:45)
[2018-02-25 09:59] LABS: BASOPHIL % 0.2 % (0.0-0.4); Basophil (Absolute #) 0.01 (0-0.4); Eosinophil % 0.3 % (0.00-5.0); Eosinophil (Absolute #) 0.02 (0-0.5); Granulocyte Absolute (ANC) 5.05 (1.4-6.9); Granulocytes % 82.1 % (36.0-66.0); Hematocrit 27.3 % (42-50); Hemoglobin 8.1 gm/dl (12.5-18.0); Lymphocyte (Absolute #) 0.29 (1.0-4.6); Lymphocytes % 4.7 % (24.0-44.0); Mean Corpuscular Hgb Concent. 29.7 g/dl (32-36); Mean Platelet Volume 8.1 fl (6-9.5); Monocyte (Absolute #) 0.78 (0.0-1.3); Monocytes % 12.7 % (0.0-12.0); Platelet Count 616 K/mm3 (150-450); Red Cell Distribution Width 19.9 % (11.5-14.0); White Blood Count 6.2 K/mm3 (4.0-10.5)
[2018-02-25 10:00] LABS: Lactic Acid 1.9 (0.4-2.0)
[2018-02-25] MEDS ORDERED: Zofran 4 MG/2 ML VIAL IV ONE (10:03)
[2018-02-25] MEDS ORDERED: MORPHINE SULFATE 4 MG INJ IV ONE (10:03)
[2018-02-25 10:08] LABS: INR 1.6 (0.8-3.0)
[2018-02-25] MEDS ORDERED: Zofran 4 MG/2 ML VIAL ONE (10:12)
[2018-02-25] MEDS ORDERED: MORPHINE SULFATE 4 MG INJ ONE (10:12)
[2018-02-25 10:14] LABS: ALBUMIN 3.7 g/dL (3.5-5.0); ALKALINE PHOSPHATASE 145 U/L (38-126); AMYLASE 48 U/L (30-110); ANION GAP 20.5 MEQ/L (5-15); BLOOD UREA NITROGEN 22 mg/dL (9-20); CHLORIDE 92 mmol/L (98-107); Calcium 11.7 mg/dL (8.4-10.2); Carbon Dioxide 22 mmol/L (22-30); Creatinine 1 0.84 mg/dL (0.66-1.25); Glucose 106 mg/dL (74-106); LIPASE 29 U/L (23-300); Potassium 4.6 mmol/L (3.5-5.1); SGOT/AST 30 U/L (17-59); SGPT/ALT 25 U/L (0-50); SODIUM 130 mmol/L (137-145); Total Protein 7.5 g/dL (6.3-8.2)
[2018-02-25 10:19] LABS: Mean Corpuscular Hemoglobin 20.7 pg (26-32)
[2018-02-25 10:24] LABS: Slide Review 1 YES
[2018-02-25 13:28] LABS: Appearance SLIGHTLY CLOUDY (CLEAR); Bilirubin NEGATIVE (NEGATIVE); Blood NEGATIVE Ery/ul (0-5); Glucose NEGATIVE (NEGATIVE); Ketones SMALL (NEGATIVE); Leukocyte Esterase NEGATIVE (NEGATIVE); Nitrite NEGATIVE (NEGATIVE); Protein,Urine Dip NEGATIVE (Negative); Specific Gravity 1.032 (1.005-1.025); Urobilinogen NEGATIVE mg/dL (0-1)
[2018-02-25] MEDS ORDERED: Levofloxacin 500MG/100ML D5W 500 MG/100 ML BAG IV STA (13:33)
[2018-02-25] MEDS ORDERED: Levofloxacin 500MG/100ML D5W 500 MG/100 ML BAG IV ONE (15:13)
[2018-02-25] MEDS ORDERED: PROTONIX 40 MG IV IV ONE ×2 (16:50→16:52)
[2018-02-25 17:20] VITALS: O2SAT 96
[2018-02-25 18:01] VITALS: BP 118/76; PULSE 68
--- NOTE | 2018-02-25 20:17 | XRAY ---
Indication: Abdomen pain and bloating. History lung cancer. Comparison: February 13, 2018. Portable chest minimal improvement in the large right effusion/atelectasis again with chest tube in situ. Remaining heart, left lung, and bony thorax unremarkable.
--- NOTE | 2018-02-25 20:20 | XRAY ---
Indication: Abdominal pain, bloating, constipation, nausea, and vomiting. History lung cancer. Multiple contiguous axial images obtained through the abdomen and pelvis using 80 cc of Isovue-370 contrast only. Comparison: February 13, 2018. Lung bases again demonstrates incompletely visualized large right effusion with chest tube in situ, pleural thickening, and lung atelectasis. Left lung base clear. Heart is not enlarged. Noncontrasted stomach unremarkable. Stable intact right lower quadrant and sigmoid anastomosis. New fluid distended small bowel loops up to 4 cm in diameter with fluid leveling in several decompressed mid abdomen small bowel loops concerning for obstruction. No free fluid/air. Again rectal vault fecal debris. Stable left renal cysts. Remaining liver, pancreas, spleen, adrenal glands, kidneys, ureters, and bladder appear unremarkable. There remains moderate aortoiliac calcifications. No AAA or pathological retroperitoneal lymphadenopathy. Impression: 1. New fluid distended small bowel loops favoring distal small bowel obstruction. 2. Stable left renal cysts. 3. Again incompletely visualized large right effusion with pleural thickening and chest tube in situ. Comment: Preliminary interpretation was made by [facility]. No discrepancy. CTDI 8.73
== END 2018-02-25 18:03 | disposition short-term general hospital (02) ==
LOC: ED 09:03
DX: K56.609 Unspecified intestinal obstruction, unspecified as to partial versus complete obstruction (principal); J90 Pleural effusion, not elsewhere classified; R11.2 Nausea with vomiting, unspecified; C34.91 Malignant neoplasm of unspecified part of right bronchus or lung; C77.9 Secondary and unspecified malignant neoplasm of lymph node, unspecified; N39.0 Urinary tract infection, site not specified; Z79.899 Other long term (current) drug therapy; Z93.0 Tracheostomy status
CPT/HCPCS: 36415; 71045; 74177; 80053; 81001; 82150; 83605; 83690; 83735; 84484; 85025; 85610; 87086; 93005; 96365; 96374; 96375; 99285; J1956; J2270; J2405; Q9967

== ENCOUNTER 2018-03-13 18:44 | Observation (INO) | payer OTHER ==
[2018-03-13] MEDS ORDERED: Sodium Chloride 0.9% 1000 ML 1,000 ML IV STA (19:52)
--- NOTE | 2018-03-13 19:52 | ERPHSYRPT ---
- History of Present Illness Time Seen by Provider: 03/13/18 19:49 Source: patient, family (pao) Exam Limitations: no limitations Patient Subjective Stated Complaint: Pt states "I have not eaten anything for a week. I am just not hungry." Triage Nursing Assessment: Pt alert and oriented X 3, skin pwd. PT has trach that is dirty and has clots in it, there is dried blood on trach and site slowly bleeding. PT is thin, mute, able to communicate through writing and whispers. Pt in no apparent respiratory distress. PT has PICC line in right bicept, pt has drain on the right lateral chest. Physician History: The patient is a 57-year-old male with his daughter complaining that he has not been able to eat for week because of difficulty swallowing. He has known throat cancer and quit his chemotherapy 3 months ago because it wasn't working. He now has pain. He goes to a doctor in [place] for the cancer. He denies nausea or vomiting. 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 Patient is currently on antibiotics for neck infection and lung infection. Timing/Duration: week(s) (1), gradual onset Severity: severe Modifying Factors: Improves With: nothing Associated Symptoms: weakness, No nausea, No vomiting, No abdominal pain Allergies/Adverse Reactions: No Known Drug Allergies Allergy (Verified 02/25/18 09:17) Home Medications: Rosuvastatin Calcium [Crestor] 10 mg PO DAILY 04/08/13 [History] Carvedilol 12.5 mg [Coreg 12.5 mg] 12.5 mg PO DAILY 06/19/17 [History] Pantoprazole Sodium [Protonix] 40 mg PO DAILY 06/19/17 [History] raNITIdine HCl [Ranitidine HCl] 150 mg PO DAILY 06/19/17 [History] Metronidazole [Flagyl] 500 mg PO TID 03/13/18 [History] Hx Tetanus, Diphtheria Vaccination/Date Given: Yes Hx Influenza Vaccination/Date Given: No Hx Pneumococcal Vaccination/Date Given: No Immunizations Up to Date: Yes - Review of Systems Constitutional: Weakness Eyes: No Symptoms Ears, Nose, & Throat: Throat Swelling, Painful Swallowing Respiratory: No Cough, No Dyspnea Cardiac: No Chest Pain, No Edema, No Syncope Abdominal/Gastrointestinal: No Abdominal Pain, No Nausea, No Vomiting, No Diarrhea Genitourinary Symptoms: No Dysuria Musculoskeletal: No Back Pain, No Neck Pain Skin: No Rash Neurological: No Dizziness, No Focal Weakness, No Sensory Changes Psychological: No Symptoms Endocrine: No Symptoms Hematologic/Lymphatic: No Symptoms Immunological/Allergic: No Symptoms All Other Systems: Reviewed and Negative - Past Medical History Pertinent Past Medical History: Yes Neurological History: No Pertinent History ENT History: No Pertinent History Cardiac History: High Cholesterol, Hypertension Respiratory History: Lung Cancer, Other Endocrine Medical History: No Pertinent History Musculoskeletal History: No Pertinent History GI Medical History: GERD History: No Pertinent History Psycho-Social History: No Pertinent History Male Reproductive Disorders: No Pertinent History Other Medical History: throat CA. pt communicated with writing r/t stoma, lung ca rt lung currently recieving chemo, last tretment last monday. hx of bowel obst 4 mos ago. currently stopped chemo - Past Surgical History Past Surgical History: Yes Neuro Surgical History: No Pertinent History Cardiac: No Pertinent History Respiratory: Tracheostomy Gastrointestinal: Colon Resection Genitourinary: No Pertinent History Musculoskeletal: No Pertinent History Male Surgical History: No Pertinent History Other Surgical History: has - Social History Smoking Status: Former smoker Exposure to second hand smoke: No Alcohol Use: None Drug Use: none Patient Lives Alone: No Significant Family History: no pertinent family hx - Nursing Vital Signs Nursing Vital Signs: Initial Vital Signs Temperature 98.9 F 03/13/18 18:53 Pulse Rate 98 H 03/13/18 18:53 Respiratory Rate 22 03/13/18 18:53 Blood Pressure 118/84 03/13/18 18:53 O2 Sat by Pulse Oximetry 99 03/13/18 18:53 Pain Scale Pain Intensity 7 - Physical Exam General Appearance: mild distress, thin Eye Exam: PERRL/EOMI, eyes nml inspection Ears, Nose, Throat Exam: dry mucous membranes Neck Exam: other (large fulminating cancer at superior left neck; trach tube in place with bleeding from around the site.) Respiratory Exam: lungs clear, rhonchi, other (right sided chest tube), No respiratory distress Cardiovascular Exam: regular rate/rhythm, normal heart sounds, normal peripheral pulses Gastrointestinal/Abdomen Exam: soft, normal bowel sounds, No tenderness, No mass Rectal Exam: not done Back Exam: normal inspection, normal range of motion, No CVA tenderness, No vertebral tenderness Extremity Exam: normal inspection, normal range of motion, pelvis stable Neurologic Exam: alert, oriented x 3, cooperative, normal mood/affect, nml cerebellar function, nml station & gait, sensation nml, No motor deficits Skin Exam: normal color, warm, dry, No rash Lymphatic Exam: No adenopathy SpO2 Interpretation: normal SpO2: 99 Oxygen Delivery: Room Air - CT Exams Chest CT Interpretation: Tele-radiologist Report (Per Dr Willett), Other (large right pleural effusion with pleural thickening; bilateral pulmonary nodules; small left pleural effusion; fluid in right and left main bronchi.) Soft Tissue Neck CT Interpretation: Tele-radiologist Report (pler Dr Willett), Other (postsurgical changes in neck; ill-defined irregular soft tussue mass measuring 5 X 3.5 x 8 cm , obliterating airway; esophagus is not clearly defined) Ordered Tests: Active Orders 24 hr Category Date Time Status Business Reporting Developer STAT Care 03/13/18 19:54 Active IV Insertion STAT Care 03/13/18 19:52 Active CHEST WITH CONTRAST [CT] Stat Exams 03/13/18 19:53 Taken NECK WITH CONTRAST [CT] Stat Exams 03/13/18 19:55 Taken BLOOD CULTURE Stat Lab 03/13/18 20:30 Received CBC W DIFF Stat Lab 03/13/18 20:14 Completed CMP Stat Lab 03/13/18 20:14 Completed Lactic Acid Stat Lab 03/13/18 20:25 Completed NT PRO BNP Stat Lab 03/13/18 20:14 Completed Medication Summary Discontinued Medications Generic Name Dose Route Start Last Admin Trade Name Freq PRN Reason Stop Dose Admin Hydromorphone HCl 1 mg 03/13/18 19:54 03/13/18 20:17 Hydromorphone 1 Mg/Ml Ampule IV 03/13/18 19:55 1 mg STAT ONE Administration Hydromorphone HCl Confirm 03/13/18 20:00 Hydromorphone 1 Mg/Ml Ampule Administered 03/13/18 20:01 Dose 1 mg .ROUTE .STK-MED ONE Sodium Chloride 1,000 mls @ 999 mls/hr 03/13/18 19:52 03/13/18 20:17 Sodium Chloride 0.9% 1000 Ml IV 03/13/18 20:52 999 mls/hr .Q1H1M STA Administration Sodium Chloride Confirm 03/13/18 20:00 Sodium Chloride 0.9% 1000 Ml Administered 03/13/18 20:01 Dose 1,000 mls @ ud .ROUTE .STK-MED ONE Ondansetron HCl 4 mg 03/13/18 19:54 03/13/18 20:17 Zofran 4 Mg/2 Ml Vial IV 03/13/18 19:55 4 mg STAT ONE Administration Ondansetron HCl Confirm 03/13/18 19:59 Zofran 4 Mg/2 Ml Vial Administered 03/13/18 20:00 Dose 4 mg .ROUTE .STK-MED ONE Lab/Rad Data: Laboratory Result Diagrams 03/13/18 20:14 03/13/18 20:14 Laboratory Results 03/13/18 03/13/18 03/13/18 Range/Units 20:25 20:14 20:14 WBC 4.6 (4.0-10.5) K/mm3 RBC 3.92 L (4.1-5.6) M/mm3 Hgb 8.8 L (12.5-18.0) gm/dl Hct 29.8 L (42-50) % MCV 76.0 L (78-100) fl MCH 22.4 L (26-32) pg MCHC 29.5 L (32-36) g/dl RDW 23.3 H (11.5-14.0) % Plt Count 368 (150-450) K/mm3 MPV 9.4 (6-9.5) fl Gran % 78.0 H (36.0-66.0) % Eos # (Auto) 0.01 (0-0.5) Absolute Lymphs (auto) 0.26 L (1.0-4.6) Absolute Monos (auto) 0.73 (0.0-1.3) Lymphocytes % 5.7 L (24.0-44.0) % Monocytes % 15.9 H (0.0-12.0) % Eosinophils % 0.2 (0.00-5.0) % Basophils % 0.2 (0.0-0.4) % Absolute Granulocytes 3.58 (1.4-6.9) Basophils # 0.01 (0-0.4) Sodium 133 L (137-145) mmol/L Potassium 3.7 (3.5-5.1) mmol/L Chloride 96 L (98-107) mmol/L Carbon Dioxide 25 (22-30) mmol/L Anion Gap 15.8 H (5-15) MEQ/L BUN 12 (9-20) mg/dL Creatinine 0.54 L (0.66-1.25) mg/dL Estimated GFR > 60.0 ML/MIN Glucose 87 (74-106) mg/dL Lactic Acid 2.2 H (0.4-2.0) Calcium 11.4 H (8.4-10.2) mg/dL Total Bilirubin 0.30 (0.2-1.3) mg/dL AST 24 (17-59) U/L ALT 7 (0-50) U/L Alkaline Phosphatase 290 H (38-126) U/L NT-Pro-B Natriuret Pep 149 (0-900) pg/mL Serum Total Protein 6.2 L (6.3-8.2) g/dL Albumin 3.0 L (3.5-5.0) g/dL - Progress Progress: improved Progress Note: 03/13/18 23:38 Per patient request we have attempted to gain admission to the [facility] cancer center in [place]. The cancer center will not be able to except the patient [facility] because they do not have any beds available. I spoke with the patient's doctor, Dr. Smith, who accepts the patient for observation stay in [facility]. We will keep the patient comfortable and given IV fluids. Discussed with : Ntahan Will see patient in: hospital (observation) Counseled pt/family regarding: lab results, diagnosis, rad results - Departure Time of Disposition: 23:38 Departure Disposition: Observation (per Dr Smith) Clinical Impression: Neck malignant neoplasm, Lung cancer, Pleural effusion, right Condition: Fair Critical Care Time: No Referrals: JANA SMITH MD [Primary Care Provider] -
[2018-03-13] MEDS ORDERED: Zofran 4 MG/2 ML VIAL IV ONE (19:54)
[2018-03-13] MEDS ORDERED: Hydromorphone 1 mg/ml Ampule IV ONE (19:54)
[2018-03-13] MEDS ORDERED: Zofran 4 MG/2 ML VIAL ONE (19:59)
[2018-03-13] MEDS ORDERED: Sodium Chloride 0.9% 1000 ML 1,000 ML ONE (20:00)
[2018-03-13] MEDS ORDERED: Hydromorphone 1 mg/ml Ampule ONE (20:00)
[2018-03-13 20:30] LABS: Lactic Acid 2.2 (0.4-2.0)
[2018-03-13 20:53] LABS: BASOPHIL % 0.2 % (0.0-0.4); Basophil (Absolute #) 0.01 (0-0.4); Eosinophil % 0.2 % (0.00-5.0); Eosinophil (Absolute #) 0.01 (0-0.5); Granulocyte Absolute (ANC) 3.58 (1.4-6.9); Hematocrit 29.8 % (42-50); Hemoglobin 8.8 gm/dl (12.5-18.0); Lymphocyte (Absolute #) 0.26 (1.0-4.6); Lymphocytes % 5.7 % (24.0-44.0); Mean Corpuscular Hemoglobin 22.4 pg (26-32); Mean Corpuscular Hgb Concent. 29.5 g/dl (32-36); Mean Platelet Volume 9.4 fl (6-9.5); Monocyte (Absolute #) 0.73 (0.0-1.3); Monocytes % 15.9 % (0.0-12.0); Platelet Count 368 K/mm3 (150-450); Red Blood Count 3.92 M/mm3 (4.1-5.6); Red Cell Distribution Width 23.3 % (11.5-14.0); White Blood Count 4.6 K/mm3 (4.0-10.5)
[2018-03-13 21:11] LABS: ALKALINE PHOSPHATASE 290 U/L (38-126); ANION GAP 15.8 MEQ/L (5-15); BLOOD UREA NITROGEN 12 mg/dL (9-20); CHLORIDE 96 mmol/L (98-107); Calcium 11.4 mg/dL (8.4-10.2); Carbon Dioxide 25 mmol/L (22-30); Creatinine 1 0.54 mg/dL (0.66-1.25); Glucose 87 mg/dL (74-106); Potassium 3.7 mmol/L (3.5-5.1); SGOT/AST 24 U/L (17-59); SGPT/ALT 7 U/L (0-50); SODIUM 133 mmol/L (137-145); Total Protein 6.2 g/dL (6.3-8.2)
[2018-03-13 21:21] LABS: NT PRO BNP 149 pg/mL (0-900)
[2018-03-13] MEDS ORDERED: MORPHINE SULFATE 4 MG INJ IV ONE (23:31)
[2018-03-13] MEDS ORDERED: MORPHINE SULFATE 4 MG INJ ONE (23:36)
[2018-03-14] MEDS ORDERED: DILAUDID 2 MG INJECTION IV PRN (00:49)
[2018-03-14] MEDS ORDERED: MORPHINE SULFATE 4 MG INJ IV PRN (00:49)
[2018-03-14] MEDS ORDERED: Dextrose 5% -0.45 NaCl 1000 ML 1,000 ML IV SCH (00:49)
[2018-03-14] MEDS ORDERED: Zofran 4 MG/2 ML VIAL IV PRN (00:49)
[2018-03-14] MEDS ORDERED: Dextrose 5% -0.45 NaCl 1000 ML 1,000 ML IV ONE (00:50)
[2018-03-14] MEDS ORDERED: MORPHINE SULFATE 4 MG INJ ONE (02:13)
[2018-03-14 03:12] LABS: Slide Review 1 YES
[2018-03-14 05:15] VITALS: BP 114/64; PULSE 81
[2018-03-14 05:48] VITALS: O2SAT 95
--- NOTE | 2018-03-15 01:12 | XRAY ---
Exam: CT of the neck with IV contrast only from 03/13/2018. Comparison: None. Indication: 57-year-old male with history of cancer of the larynx and lung. He is status post laryngectomy. He complains of inability to swallow/dysphagia. He discontinued his cancer therapy recently because he believed it wasn't helping, he has continued to deteriorate physically. Technique: Post-IV contrast axial images were obtained through the neck during automated injection of 60 ML's of Isovue 370 contrast material. Reconstructed coronal and sagittal images were created and reviewed. Findings: Extensive postsurgical changes are seen within the neck with numerous surgical clips.. The patient is status post laryngectomy. A tracheostomy is noted within the lower neck. Within the upper left lateral margin of the neck, there is a large irregular thick walled mass with low-attenuation center measuring about 6.3 cm in AP dimension, 5.8 cm in width, and roughly 5.1 cm in height or craniocaudal dimension. For example, see axial image #26. This is consistent with malignant disease. Just inferior and posterior to this mass there appears to be nodular soft tissue thickening/mass along the skin surface measuring about 2.7 cm in AP dimension and 1.5 cm in width. This is also believed to be due to malignancy. See axial image #30. In addition, the airway is obliterated by a large heterogeneous soft tissue mass affecting the hypopharynx centered just to the right of midline measuring about 3.35 cm in AP dimension, 3.0 cm in width, and 6.4 cm in craniocaudal dimension. For example, see axial image #33 and sagittal image #36. This is consistent with extensive malignant disease as well. I do not definitely see the cervical esophagus, and this is probably obstructed as well. I also note confluent mass within the lower anterior neck, more prominent on the left than right, consistent with malignant disease. This is located just above the level of the tracheostomy. I believe there is an enhancing 1.7 cm in diameter left supraclavicular lymph node on axial image #46. I cannot exclude a large right infraclavicular lymph node measuring 1.6 cm in diameter on axial image #46. Chest findings will be discussed on the CT of the chest report. However, there appears to be a pleural-based 1 cm in diameter left apical nodule suggestive of metastasis. See sagittal image #65. Some dental amalgam is seen within the mouth. There is moderate degenerative disc disease at C5-C6. No acute fracture or focal bone destruction is seen. Impression: 1. There is a large heterogeneous, ill-defined neck mass obliterating the airway within the upper neck centered just to the right of midline. This also probably obstructs the esophagus. An additional large mass is seen laterally within the upper left neck. This is consistent with extensive malignant disease.
--- NOTE | 2018-03-15 01:40 | XRAY ---
Exam: CT of the chest with IV contrast from 03/13/2018. CTDI: 11.25 Comparison: AP portable chest film from 02/25/2018. Indication: 57-year-old male with history of throat cancer and lung cancer, complains of dysphagia. Technique: Post-IV contrast axial images were obtained through the chest during automated injection of 60 ML's of Isovue 370 contrast material. Reconstructed coronal MIP and conventional sagittal images were created and reviewed. Findings: I again see a tracheostomy tube within the lower neck anteriorly. There is marked narrowing of the mid to distal right mainstem bronchus on axial image #24 with collapse of the right lower and middle lobes and atelectasis of some of the right upper lobe. Scattered small lung nodules are seen within the aerated portion of the right upper lobe measuring up to 7.5 mm in diameter on axial image #19. I again note a large right pleural effusion with a right pleural drain in place. There is diffuse irregular and nodular right pleural thickening, more prominent medially and along the right hemidiaphragm. Minimal gas is seen within the posterior aspect of this right pleural effusion, decreased from 02/25/2018. I also note a small left pleural effusion with some concomitant posterior left basilar atelectasis. Several scattered noncalcified soft tissue nodules are seen throughout the left lung consistent with metastatic disease. The largest nodule is seen at the anterior medial aspect of the left lung apex on axial image #10 and measures about 1 cm in diameter. The remainder the left lung appears clear. An enlarged distal right paratracheal lymph node is seen measuring about 1.35 cm in short axis on axial image #21. There are also a couple other right paratracheal lymph nodes measuring up to 0.8 cm in short axis. These are probably due to malignancy as well. The heart size is normal without pericardial effusion. Thoracic aorta reveals some atherosclerotic vascular calcification. No aneurysm or dissection is seen. There is a suggestion of a minimal hiatal hernia. The remainder of the thoracic esophagus appears essentially unremarkable. Some subcutaneous edema is seen within the soft tissues. I detect no acute fracture or obvious bone metastasis. Mild thoracic vertebral endplate spurring is seen. Within the upper abdomen I see a small amount of perihepatic and perisplenic intraperitoneal fluid. A couple renal cysts are seen on the left, the largest cyst measuring 3.8 cm in diameter. Dilated small bowel loops are seen within the left upper quadrant, as seen before.. Impression: 1. Very abnormal chest CT. There is again a large right pleural effusion with a pleural drain. Diffuse irregular, nodular pleural thickening is seen on the right. There is atelectasis of most of the right lung except for a portion of the right upper lobe. Scattered bilateral soft tissue lung nodules are seen consistent with metastatic disease. There is marked narrowing of the right mainstem bronchus. Some probable metastatic lymph nodes are seen within the mediastinum. The thoracic esophagus reveals equivocal evidence of a minimal hiatal hernia. No other definite thoracic esophageal abnormality is seen. A mild left basilar pleural effusion is seen. 2. Minimal free fluid is seen within the upper abdomen as well as some dilated small bowel lobes within the left upper quadrant.
== END 2018-03-14 05:59 ==
LOC: ED 18:44 → MED SURG 03-14 00:42
PROVIDERS: ADMIT General Practice; ATTEND General Practice
DX: C76.0 Malignant neoplasm of head, face and neck (principal); C34.90 Malignant neoplasm of unspecified part of unspecified bronchus or lung; J90 Pleural effusion, not elsewhere classified; Z93.0 Tracheostomy status; Z79.899 Other long term (current) drug therapy; Z85.118 Personal history of other malignant neoplasm of bronchus and lung; Z85.819 Personal history of malignant neoplasm of unspecified site of lip, oral cavity, and pharynx; K21.9 Gastro-esophageal reflux disease without esophagitis; E78.00 Pure hypercholesterolemia, unspecified
CPT/HCPCS: 36000; 36415; 70491; 71260; 80053; 83605; 83880; 85025; 87040; 93041; 93268; 94762; 94799; 96360; 96374; 96375; 99285; G0378; J1170; J1642; J2270; J2405